=== PATIENT | male | born 1940 | race Caucasian/White ===

== ENCOUNTER 2017-01-31 15:16 | Inpatient (IN) | payer OTHER ==
[2017-01-31 16:50] LABS: BASOPHILS % (AUTO) 0.6 % (0.2-1.0); EOSINOPHILS # (AUTO) 0.5 x10^3/uL (0.0-0.2); EOSINOPHILS % (AUTO) 6.9 % (0.9-2.9); HEMATOCRIT 42.2 % (42.0-54.0); HEMOGLOBIN 14.1 g/dL (13.5-18.0); LYMPHOCYTES # (AUTO) 1.8 X10^3/uL (1.3-2.9); LYMPHOCYTES % (AUTO) 25.1 % (21.0-51.0); MEAN CORPUSCULAR HGB CONC 33.4 g/dL (33.0-35.0); MEAN CORPUSCULAR VOLUME 83.8 fL (80.0-100.0); MEAN PLATELET VOLUME 8.4 fL (7.4-11.0); MONOCYTES # (AUTO) 0.4 x10^3/uL (0.3-0.8); MONOCYTES % (AUTO) 5.4 % (0.0-13.0); NEUTROPHILS # (AUTO) 4.5 x10^3/uL (2.2-4.8); PLATELET COUNT 143 X10^3/uL (150.0-450.0); RED BLOOD COUNT 5.03 X10^6/uL (4.7-6.0); RED CELL DISTRIBUTION WIDTH 16.9 % (11.6-16.5); WHITE BLOOD COUNT 7.3 X10^3/uL (3.6-10.0)
[2017-01-31 16:58] LABS: ALANINE AMINOTRANSFERASE 27 Units/L (12-78); ALBUMIN 3.7 g/dL (3.4-5.0); ALKALINE PHOSPHATASE 110 Units/L (46-116); ASPARTATE AMINO TRANSFERASE 23 Units/L (15-37); BLOOD UREA NITROGEN 11 mg/dL (7-18); CALCIUM 8.8 mg/dL (8.5-10.1); CHLORIDE 107 mmol/L (98-107); CREATININE 1.03 mg/dL (0.70-1.30); SODIUM 141 mmol/L (136-145); TOTAL PROTEIN 7.1 g/dL (6.4-8.2); eGFR BLACK RACES > 60 (>60); eGFR NON BLACK RACES > 60 (>60)
[2017-01-31] MEDS: NS 1000 ML 1,000 ML IV SCH (17:19)
[2017-01-31 17:46] VITALS: BMI 23.1
[2017-01-31 19:02] LABS: BILIRUBIN,URINE NEGATIVE (NEGATIVE); BLOOD/HEMOGLOBIN,URINE NEGATIVE (NEGATIVE); GLUCOSE, URINE NEGATIVE (NEGATIVE); KETONES,URINE NEGATIVE (NEGATIVE); LEUKOCYTE ESTERASE ,URINE NEGATIVE (NEGATIVE); NITRITES,URINE NEGATIVE (NEGATIVE); PROTEIN,URINE NEGATIVE (NEGATIVE); UROBILINOGEN,URINE NORMAL (NORMAL)
[2017-01-31 19:13] LABS: APPEARANCE,URINE CLEAR (CLEAR); BACTERIA,URINE NEGATIVE /HPF (NEGATIVE); COLOR,URINE YELLOW (YELLOW); RBC,URINE 0-3 /HPF (NEGATIVE); SQUAMOUS EPITHELIAL CELL,UR RARE /HPF (NEGATIVE)
[2017-01-31] MEDS ORDERED: NS 100 ML IV 100 ML IV ONE (21:37)
--- NOTE | 2017-02-01 05:14 | CT ---
CT abdomen and pelvis with contrast Indication: left lower quadrant and groin pain Comparison: None Technique: CT images of the abdomen and pelvis were obtained after IV and oral contrast administratio n. Automatic exposure control was utilized. Findings: There is severe lumbar spondylosis. No acute skeletal abnormality identified. Images of the lower chest demonstrate mild cardiomegaly. The lung bases are clear. The liver, gallbladder, spleen, stomach, duodenum, and pancreas demonstrate no acute abnormality. Pos tsurgical changes about the GE junction of the stomach are noted. The adrenal glands and kidneys appe ar normal aside from a simple appearing left renal cyst. There is extensive colonic diverticulosis. T here is mild focal circumferential thickening involving a short segment of the proximal sigmoid (axia l image 68). No significant adjacent fat stranding or fluid in this region appreciated. The remainder of the lower GI tract, including the appendix, is unremarkable. Mild thickening of the urinary bladd er. The prostate and rectum are within normal limits. No free fluid or adenopathy. There are small fa t containing bilateral inguinal hernias, with mild fat stranding associated with the base of the left -sided hernia. Impression: 1. Colonic diverticulosis. There is circumferential thickening involving a short segment of the proxi mal sigmoid colon as above. Although this could be the result of peristalsis or nondistention, early/ mild diverticulitis is not excluded. Additionally, neoplasm here is also a consideration. Recommend c olonoscopy for further evaluation, if not recently or previously performed. 2. Small fat containing bilateral inguinal hernias, with mild nonspecific fat stranding at the base o f the left-sided hernia. 3. Urinary bladder thickening. Correlation for cystitis is recommended. 4. Additional findings as above. Reported By:
[2017-02-01] MEDS: NS 1000 ML 1,000 ML IV SCH ×2 (05:19→11:31)
[2017-02-01 05:57] LABS: BASOPHILS % (AUTO) 0.6 % (0.2-1.0); EOSINOPHILS # (AUTO) 0.5 x10^3/uL (0.0-0.2); EOSINOPHILS % (AUTO) 9.1 % (0.9-2.9); HEMATOCRIT 38.4 % (42.0-54.0); HEMOGLOBIN 12.8 g/dL (13.5-18.0); LYMPHOCYTES # (AUTO) 1.4 X10^3/uL (1.3-2.9); LYMPHOCYTES % (AUTO) 24.1 % (21.0-51.0); MEAN CORPUSCULAR HEMOGLOBIN 27.8 pg (27.0-34.0); MEAN CORPUSCULAR HGB CONC 33.2 g/dL (33.0-35.0); MEAN CORPUSCULAR VOLUME 83.5 fL (80.0-100.0); MEAN PLATELET VOLUME 8.4 fL (7.4-11.0); MONOCYTES # (AUTO) 0.4 x10^3/uL (0.3-0.8); MONOCYTES % (AUTO) 7.3 % (0.0-13.0); NEUTROPHILS # (AUTO) 3.5 x10^3/uL (2.2-4.8); NEUTROPHILS % (AUTO) 58.9 % (42.0-75.0); PLATELET COUNT 119 X10^3/uL (150.0-450.0); RED CELL DISTRIBUTION WIDTH 16.7 % (11.6-16.5)
[2017-02-01 05:59] LABS: ALANINE AMINOTRANSFERASE 22 Units/L (12-78); ALBUMIN 3.2 g/dL (3.4-5.0); ALKALINE PHOSPHATASE 102 Units/L (46-116); ASPARTATE AMINO TRANSFERASE 20 Units/L (15-37); BLOOD UREA NITROGEN 10 mg/dL (7-18); CALCIUM 8.1 mg/dL (8.5-10.1); CARBON DIOXIDE 28.1 mmol/L (21-32); CHLORIDE 108 mmol/L (98-107); COR CA(FOR HYPOALB) 8.7 mg/dL (8.5-10.1); SODIUM 143 mmol/L (136-145); eGFR BLACK RACES > 60 (>60); eGFR NON BLACK RACES > 60 (>60)
[2017-02-01] MEDS: CIPRO IV 400 MG PREMIX* 400 MG/200 ML IV.SOLN. IV SCH ×2 (10:27→21:00)
--- NOTE | 2017-02-01 10:40 | DR.UPDATE ---
H&P Update History and Physical Update: WAS SEEN IN THE OFFICE ON 01/31/17. A H&P WAS COMPLETED PRIOR TO ADMISSION. PATIENT HAS BEEN SEEN AND EXAMINED WITH NO CHANGES NOTED TO H&P. Changes noted: NO Yes with the following:
[2017-02-01] MEDS: FLAGYL IV PREMIX 500 MG BAG 500 MG/100 ML BAG IV SCH ×3 (11:30→21:00)
[2017-02-01] MEDS: DILANTIN CAP 100 MG EXT REL PO SCH ×2 (16:12→20:56)
[2017-02-01] MEDS: TOPROL XL PO SCH (16:12)
[2017-02-01] MEDS: KLONOPIN TAB 0.5 MG PO SCH (20:56)
[2017-02-01] MEDS: COMBIGAN EYE DROPS EACHEYE SCH (20:58)
[2017-02-01] MEDS: TRAVATAN Z EACHEYE SCH (20:58)
[2017-02-02] MEDS: NS 1000 ML 1,000 ML IV SCH ×2 (03:34→23:35)
[2017-02-02] MEDS: FLAGYL IV PREMIX 500 MG BAG 500 MG/100 ML BAG IV SCH ×4 (03:34→21:59)
[2017-02-02 06:16] LABS: BASOPHILS # (AUTO) 0.1 X10^3/uL (0.0-0.1); BASOPHILS % (AUTO) 0.7 % (0.2-1.0); EOSINOPHILS # (AUTO) 0.6 x10^3/uL (0.0-0.2); EOSINOPHILS % (AUTO) 7.6 % (0.9-2.9); HEMATOCRIT 36.4 % (42.0-54.0); HEMOGLOBIN 12.2 g/dL (13.5-18.0); LYMPHOCYTES # (AUTO) 1.6 X10^3/uL (1.3-2.9); LYMPHOCYTES % (AUTO) 20.5 % (21.0-51.0); MEAN CORPUSCULAR HGB CONC 33.5 g/dL (33.0-35.0); MEAN CORPUSCULAR VOLUME 83.6 fL (80.0-100.0); MEAN PLATELET VOLUME 9.6 fL (7.4-11.0); MONOCYTES # (AUTO) 0.6 x10^3/uL (0.3-0.8); MONOCYTES % (AUTO) 7.6 % (0.0-13.0); NEUTROPHILS # (AUTO) 5.1 x10^3/uL (2.2-4.8); NEUTROPHILS % (AUTO) 63.6 % (42.0-75.0); PLATELET COUNT 112 X10^3/uL (150.0-450.0); RED BLOOD COUNT 4.36 X10^6/uL (4.7-6.0); RED CELL DISTRIBUTION WIDTH 16.8 % (11.6-16.5)
[2017-02-02 07:01] LABS: ALANINE AMINOTRANSFERASE 21 Units/L (12-78); ALBUMIN 3.1 g/dL (3.4-5.0); ALKALINE PHOSPHATASE 95 Units/L (46-116); ASPARTATE AMINO TRANSFERASE 22 Units/L (15-37); BLOOD UREA NITROGEN 8 mg/dL (7-18); CALCIUM 8.3 mg/dL (8.5-10.1); CARBON DIOXIDE 26.4 mmol/L (21-32); CHLORIDE 110 mmol/L (98-107); CREATININE 1.11 mg/dL (0.70-1.30); SODIUM 144 mmol/L (136-145); TOTAL PROTEIN 5.8 g/dL (6.4-8.2); eGFR BLACK RACES > 60 (>60); eGFR NON BLACK RACES > 60 (>60)
[2017-02-02 07:12] LABS: PLATELET MORPHOLOGY COMMENT NORMAL (NORMAL)
[2017-02-02] MEDS: DILANTIN CAP 100 MG EXT REL PO SCH ×2 (08:50→21:55)
[2017-02-02] MEDS: CIPRO IV 400 MG PREMIX* 400 MG/200 ML IV.SOLN. IV SCH ×2 (08:50→21:59)
[2017-02-02] MEDS: TOPROL XL PO SCH (08:50)
[2017-02-02] MEDS: COMBIGAN EYE DROPS EACHEYE SCH ×2 (08:51→22:01)
--- NOTE | 2017-02-02 20:38 | PCM.PROG ---
Progress Note - Progress Note for Day of Date: 02/01/17 - Subjective Subjective: WAS ADMITTED FOR LLQ ABDOMINAL PAIN. HE IS ALERT AND ORIENTED, LYING IN BED ON MORNING ROUNDS. HE CONTINUES WITH LLQ PAIN. ON EXAMINATION, ABDOMEN IS ROUND WITH DIFFUSE TENDERNESS. BOWEL SOUNDS ARE NORMAL IN ALL QUADRANTS. LUNGS ARE CLEAR TO AUSCULTATION. VITALS THIS AM ARE 98.9-83-18 -97%-115/54. ABNORMAL LAB VALUES THIS MORNING INCLUDE RBC 4.60, HGB 12.8, HCT 38.4, CALCIUM 8.1, TOTAL PROTEIN 6.0, ALBUMIN 3.2. CT ABD/PELVIS WITH CONTRAST WAS OBTAINED AND REPORTED THE FOLLOWING: Colonic diverticulosis. There is circumferential thickening involving a short segment of the proximal sigmoid colon. Although this could be the result of peristalsis or non-distention, early/mild diverticulitis is not excluded. Additionally, neoplasm here is also a consideration. Recommend colonoscopy for further evaluation, if not recently performed. Small fat containing bilateral inguinal hernias, with mild nonspecific fat stranding at the base of the left sided hernia. Urinary bladder thickening. Correlation for cystitis is recommended. WE WILL START CIPRO 400MG IV Q12 AND FLAGYL 500MG IV Q6H FOR SUSPECTED DIVERTICULITITS. WE WILL ALSO OBTAIN ECHO AND CONSULT FOR ABDOMINAL PAIN. WE PLAN TO RECHECK AM LABS AND CONTINUE TO MONITOR PATIENT. - Past Medical Family Social History Past Med/Fam/Surg Hx: No changes since H&P Allergies: Allergies No Known Drug Allergies Allergy (Verified 01/31/17 16:22) - Review of Systems ROS: No change since H&P - Vital Signs and I&O's Vital Signs: Temperature 97.9 F Pulse Rate [Right Brachial] 62 Respiratory Rate 20 Blood Pressure [Left Arm] 179/89 Blood Pressure [Right Arm] 120/70 Blood Pressure 120/74 O2 Sat by Pulse Oximetry 98 Intake and Output: Intake & Output 01/31/17 02/01/17 02/02/17 02/03/17 11:59 11:59 11:59 11:59 Intake Total 480 2277 240 Output Total 500 2195 600 Balance -57 -353 -360 - Physical Exam Oriented: Normal Eyes: Discharge, Other (GLAUCOMA ) Ear: Normal Nose: Normal Throat: Normal Respiratory: Normal Cardiovascular: Normal : Normal Auscultation: Bowel Sounds: Normal Tenderness: Diffuse, Mild Skin: Normal Musculoskeletal: Normal Psychiatric: Normal Mood Description: Calm Affect: Normal Speech Pattern: Clear, Appropriate - Laboratory and Diagnostics Result Diagrams: 02/02/17 04:55 02/02/17 04:55 Labs: Laboratory WBC 8.0 X10^3/uL (3.6-10.0) 02/02/17 04:55 RBC 4.36 X10^6/uL (4.7-6.0) L 02/02/17 04:55 Hgb 12.2 g/dL (13.5-18.0) L 02/02/17 04:55 Hct 36.4 % (42.0-54.0) L 02/02/17 04:55 MCV 83.6 fL (80.0-100.0) 02/02/17 04:55 MCH 28.0 pg (27.0-34.0) 02/02/17 04:55 MCHC 33.5 g/dL (33.0-35.0) 02/02/17 04:55 RDW 16.8 % (11.6-16.5) H 02/02/17 04:55 Plt Count 112 X10^3/uL (150.0-450.0) L 02/02/17 04:55 Plt Count Comment Decreased (ADEQUATE) 02/02/17 04:55 MPV 9.6 fL (7.4-11.0) 02/02/17 04:55 Neut % 63.6 % (42.0-75.0) 02/02/17 04:55 Lymph % 20.5 % (21.0-51.0) L 02/02/17 04:55 [place] % 7.6 % (0.0-13.0) 02/02/17 04:55 Eos % 7.6 % (0.9-2.9) H 02/02/17 04:55 Baso % 0.7 % (0.2-1.0) 02/02/17 04:55 Neut # 5.1 x10^3/uL (2.2-4.8) H 02/02/17 04:55 Lymph # 1.6 X10^3/uL (1.3-2.9) 02/02/17 04:55 [place] # 0.6 x10^3/uL (0.3-0.8) 02/02/17 04:55 Eos # 0.6 x10^3/uL (0.0-0.2) H 02/02/17 04:55 Baso # 0.1 X10^3/uL (0.0-0.1) 02/02/17 04:55 Absolute Nucleated RBC 0.0 /100WBC 02/02/17 04:55 Plt Clumps, EDTA Rare 02/02/17 04:55 Plt Morphology Comment Normal (NORMAL) 02/02/17 04:55 RBC Morphology Normal (NORMAL) 02/02/17 04:55 Sodium 144 mmol/L (136-145) 02/02/17 04:55 Corrected Sodium TNP 02/02/17 04:55 Potassium 4.3 mmol/L (3.5-5.1) 02/02/17 04:55 Chloride 110 mmol/L (98-107) H 02/02/17 04:55 Carbon Dioxide 26.4 mmol/L (21-32) 02/02/17 04:55 BUN 8 mg/dL (7-18) 02/02/17 04:55 Creatinine 1.11 mg/dL (0.70-1.30) 02/02/17 04:55 Est GFR (MDRD) Af Amer > 60 (>60) 02/02/17 04:55 Est GFR (MDRD) Non-Af > 60 (>60) 02/02/17 04:55 Glucose 87 mg/dL (65-99) 02/02/17 04:55 Calcium 8.3 mg/dL (8.5-10.1) L 02/02/17 04:55 Corrected Calcium 9.0 mg/dL (8.5-10.1) 02/02/17 04:55 Total Bilirubin 0.30 mg/dL (0.2-1.0) 02/02/17 04:55 AST 22 Units/L (15-37) 02/02/17 04:55 ALT 21 Units/L (12-78) 02/02/17 04:55 Alkaline Phosphatase 95 Units/L (46-116) 02/02/17 04:55 Total Protein 5.8 g/dL (6.4-8.2) L 02/02/17 04:55 Albumin 3.1 g/dL (3.4-5.0) L 02/02/17 04:55 Globulin 2.7 g/dL (2.5-4.5) 02/02/17 04:55 Albumin/Globulin Ratio 1.1 Ratio (1.1-2.1) 02/02/17 04:55 Specimen Type Clean catch urine 01/31/17 18:52 Urine Color Yellow (YELLOW) 01/31/17 18:52 Urine Appearance Clear (CLEAR) 01/31/17 18:52 Urine pH 7.0 (5.0 - 8.0) 01/31/17 18:52 Ur Specific [place] 1.015 (1.000-1.030) 01/31/17 18:52 Urine Protein Negative (NEGATIVE) 01/31/17 18:52 Urine Glucose (UA) Negative (NEGATIVE) 01/31/17 18:52 Urine Ketones Negative (NEGATIVE) 01/31/17 18:52 Urine Occult Blood Negative (NEGATIVE) 01/31/17 18:52 Urine Nitrite Negative (NEGATIVE) 01/31/17 18:52 Urine Bilirubin Negative (NEGATIVE) 01/31/17 18:52 Urine Urobilinogen Normal (NORMAL) 01/31/17 18:52 Ur Leukocyte Esterase Negative (NEGATIVE) 01/31/17 18:52 Urine RBC 0-3 /HPF (NEGATIVE) 01/31/17 18:52 Urine WBC 0-3 /HPF (NEGATIVE) 01/31/17 18:52 Ur Squamous Epith Cells Rare /HPF (NEGATIVE) 01/31/17 18:52 Urine Bacteria Negative /HPF (NEGATIVE) 01/31/17 18:52 Ur Culture Indicated? No/not indicated 01/31/17 18:52 - Plan (1) Diverticulitis Status: Acute Qualifiers: Diverticulitis site: large intestine Diverticulitis bleeding: without bleeding Diverticulitis complication: unspecified complication status Qualified Code(s): K57.32 - Diverticulitis of large intestine without perforation or abscess without bleeding Plan: CIPRO 400MG IV Q12H, FLAGYL 500MG IV Q6H, GI CONSULT, CONTINUE TO MONITOR
--- NOTE | 2017-02-02 21:15 | PCM.PROG ---
Progress Note - Progress Note for Day of Date: 02/02/17 - Subjective Subjective: IS ALERT AND ORIENTED, LYING IN BED ON MORNING ROUNDS. HE CONTINUES WITH LLQ PAIN. BOWEL SOUNDS ARE NORMAL IN ALL QUADRANTS. LUNGS ARE CLEAR TO AUSCULTATION. VITALS THIS AM ARE 97.7-62-20-97%-133/73. ABNORMAL LAB VALUES THIS MORNING INCLUDE RBC 4.36, HGB 12.2, HCT 36.4, CALCIUM 8.3, TOTAL PROTEIN 5.8, ALBUMIN 3.1. PATIENT REMAINS NPO AND WE ARE AWAITING CONSULT WITH . WE WILL ALSO OBTAIN AN ECHO TODAY. WE PLAN TO RECHECK AM LABS AND CONTINUE TO MONITOR PATIENT. - Past Medical Family Social History Past Med/Fam/Surg Hx: No changes since H&P Allergies: Allergies No Known Drug Allergies Allergy (Verified 01/31/17 16:22) - Review of Systems ROS: No change since H&P - Vital Signs and I&O's Vital Signs: Temperature 97.9 F Pulse Rate [Right Brachial] 62 Respiratory Rate 20 Blood Pressure [Left Arm] 179/89 Blood Pressure [Right Arm] 120/70 Blood Pressure 120/74 O2 Sat by Pulse Oximetry 98 Intake and Output: Intake & Output 01/31/17 02/01/17 02/02/17 02/03/17 11:59 11:59 11:59 11:59 Intake Total 480 2277 240 Output Total 500 2925 600 Balance -42 -845 -404 - Physical Exam Oriented: Normal Eyes: Discharge, Other (GLAUCOMA ) Ear: Normal Nose: Normal Throat: Normal Respiratory: Normal Cardiovascular: Normal : Normal Auscultation: Bowel Sounds: Normal Tenderness: Diffuse, Mild Skin: Normal Musculoskeletal: Normal Psychiatric: Normal Mood Description: Calm Affect: Normal Speech Pattern: Clear, Appropriate - Laboratory and Diagnostics Result Diagrams: 02/02/17 04:55 02/02/17 04:55 Labs: Laboratory WBC 8.0 X10^3/uL (3.6-10.0) 02/02/17 04:55 RBC 4.36 X10^6/uL (4.7-6.0) L 02/02/17 04:55 Hgb 12.2 g/dL (13.5-18.0) L 02/02/17 04:55 Hct 36.4 % (42.0-54.0) L 02/02/17 04:55 MCV 83.6 fL (80.0-100.0) 02/02/17 04:55 MCH 28.0 pg (27.0-34.0) 02/02/17 04:55 MCHC 33.5 g/dL (33.0-35.0) 02/02/17 04:55 RDW 16.8 % (11.6-16.5) H 02/02/17 04:55 Plt Count 112 X10^3/uL (150.0-450.0) L 02/02/17 04:55 Plt Count Comment Decreased (ADEQUATE) 02/02/17 04:55 MPV 9.6 fL (7.4-11.0) 02/02/17 04:55 Neut % 63.6 % (42.0-75.0) 02/02/17 04:55 Lymph % 20.5 % (21.0-51.0) L 02/02/17 04:55 [place] % 7.6 % (0.0-13.0) 02/02/17 04:55 Eos % 7.6 % (0.9-2.9) H 02/02/17 04:55 Baso % 0.7 % (0.2-1.0) 02/02/17 04:55 Neut # 5.1 x10^3/uL (2.2-4.8) H 02/02/17 04:55 Lymph # 1.6 X10^3/uL (1.3-2.9) 02/02/17 04:55 [place] # 0.6 x10^3/uL (0.3-0.8) 02/02/17 04:55 Eos # 0.6 x10^3/uL (0.0-0.2) H 02/02/17 04:55 Baso # 0.1 X10^3/uL (0.0-0.1) 02/02/17 04:55 Absolute Nucleated RBC 0.0 /100WBC 02/02/17 04:55 Plt Clumps, EDTA Rare 02/02/17 04:55 Plt Morphology Comment Normal (NORMAL) 02/02/17 04:55 RBC Morphology Normal (NORMAL) 02/02/17 04:55 Sodium 144 mmol/L (136-145) 02/02/17 04:55 Corrected Sodium TNP 02/02/17 04:55 Potassium 4.3 mmol/L (3.5-5.1) 02/02/17 04:55 Chloride 110 mmol/L (98-107) H 02/02/17 04:55 Carbon Dioxide 26.4 mmol/L (21-32) 02/02/17 04:55 BUN 8 mg/dL (7-18) 02/02/17 04:55 Creatinine 1.11 mg/dL (0.70-1.30) 02/02/17 04:55 Est GFR (MDRD) Af Amer > 60 (>60) 02/02/17 04:55 Est GFR (MDRD) Non-Af > 60 (>60) 02/02/17 04:55 Glucose 87 mg/dL (65-99) 02/02/17 04:55 Calcium 8.3 mg/dL (8.5-10.1) L 02/02/17 04:55 Corrected Calcium 9.0 mg/dL (8.5-10.1) 02/02/17 04:55 Total Bilirubin 0.30 mg/dL (0.2-1.0) 02/02/17 04:55 AST 22 Units/L (15-37) 02/02/17 04:55 ALT 21 Units/L (12-78) 02/02/17 04:55 Alkaline Phosphatase 95 Units/L (46-116) 02/02/17 04:55 Total Protein 5.8 g/dL (6.4-8.2) L 02/02/17 04:55 Albumin 3.1 g/dL (3.4-5.0) L 02/02/17 04:55 Globulin 2.7 g/dL (2.5-4.5) 02/02/17 04:55 Albumin/Globulin Ratio 1.1 Ratio (1.1-2.1) 02/02/17 04:55 Specimen Type Clean catch urine 01/31/17 18:52 Urine Color Yellow (YELLOW) 01/31/17 18:52 Urine Appearance Clear (CLEAR) 01/31/17 18:52 Urine pH 7.0 (5.0 - 8.0) 01/31/17 18:52 Ur Specific [place] 1.015 (1.000-1.030) 01/31/17 18:52 Urine Protein Negative (NEGATIVE) 01/31/17 18:52 Urine Glucose (UA) Negative (NEGATIVE) 01/31/17 18:52 Urine Ketones Negative (NEGATIVE) 01/31/17 18:52 Urine Occult Blood Negative (NEGATIVE) 01/31/17 18:52 Urine Nitrite Negative (NEGATIVE) 01/31/17 18:52 Urine Bilirubin Negative (NEGATIVE) 01/31/17 18:52 Urine Urobilinogen Normal (NORMAL) 01/31/17 18:52 Ur Leukocyte Esterase Negative (NEGATIVE) 01/31/17 18:52 Urine RBC 0-3 /HPF (NEGATIVE) 01/31/17 18:52 Urine WBC 0-3 /HPF (NEGATIVE) 01/31/17 18:52 Ur Squamous Epith Cells Rare /HPF (NEGATIVE) 01/31/17 18:52 Urine Bacteria Negative /HPF (NEGATIVE) 01/31/17 18:52 Ur Culture Indicated? No/not indicated 01/31/17 18:52 - Plan (1) Diverticulitis Status: Acute Qualifiers: Diverticulitis site: large intestine Diverticulitis bleeding: without bleeding Diverticulitis complication: unspecified complication status Qualified Code(s): K57.32 - Diverticulitis of large intestine without perforation or abscess without bleeding Plan: CIPRO 400MG IV Q12H, FLAGYL 500MG IV Q6H, GI CONSULT, CONTINUE TO MONITOR
[2017-02-02] MEDS: KLONOPIN TAB 0.5 MG PO SCH (21:55)
[2017-02-02] MEDS: TRAVATAN Z EACHEYE SCH (22:01)
[2017-02-03] MEDS: FLAGYL IV PREMIX 500 MG BAG 500 MG/100 ML BAG IV SCH ×4 (05:00→21:16)
[2017-02-03 05:23] LABS: BASOPHILS % (AUTO) 0.5 % (0.2-1.0); EOSINOPHILS # (AUTO) 0.5 x10^3/uL (0.0-0.2); EOSINOPHILS % (AUTO) 8.7 % (0.9-2.9); HEMATOCRIT 35.5 % (42.0-54.0); HEMOGLOBIN 11.8 g/dL (13.5-18.0); LYMPHOCYTES # (AUTO) 1.6 X10^3/uL (1.3-2.9); LYMPHOCYTES % (AUTO) 26.4 % (21.0-51.0); MEAN CORPUSCULAR HGB CONC 33.3 g/dL (33.0-35.0); MEAN PLATELET VOLUME 8.7 fL (7.4-11.0); MONOCYTES # (AUTO) 0.5 x10^3/uL (0.3-0.8); MONOCYTES % (AUTO) 9.2 % (0.0-13.0); NEUTROPHILS # (AUTO) 3.3 x10^3/uL (2.2-4.8); NEUTROPHILS % (AUTO) 55.2 % (42.0-75.0); PLATELET COUNT 113 X10^3/uL (150.0-450.0); RED BLOOD COUNT 4.22 X10^6/uL (4.7-6.0); RED CELL DISTRIBUTION WIDTH 16.4 % (11.6-16.5); WHITE BLOOD COUNT 5.9 X10^3/uL (3.6-10.0)
[2017-02-03 05:31] LABS: ALANINE AMINOTRANSFERASE 17 Units/L (12-78); ALKALINE PHOSPHATASE 95 Units/L (46-116); ASPARTATE AMINO TRANSFERASE 15 Units/L (15-37); BLOOD UREA NITROGEN 9 mg/dL (7-18); CARBON DIOXIDE 24.3 mmol/L (21-32); CHLORIDE 110 mmol/L (98-107); COR CA(FOR HYPOALB) 8.8 mg/dL (8.5-10.1); COR NA(FOR HYPERGLY) 142 mmol/L (136-145); CREATININE 1.09 mg/dL (0.70-1.30); SODIUM 142 mmol/L (136-145); TOTAL PROTEIN 5.6 g/dL (6.4-8.2); eGFR BLACK RACES > 60 (>60); eGFR NON BLACK RACES > 60 (>60)
[2017-02-03] MEDS: TOPROL XL PO SCH (10:20)
[2017-02-03] MEDS: COMBIGAN EYE DROPS EACHEYE SCH ×2 (10:20→21:17)
[2017-02-03] MEDS: CIPRO IV 400 MG PREMIX* 400 MG/200 ML IV.SOLN. IV SCH ×2 (10:20→21:16)
[2017-02-03] MEDS: DILANTIN CAP 100 MG EXT REL PO SCH ×2 (10:21→21:16)
[2017-02-03] MEDS: NS 1000 ML 1,000 ML IV SCH (21:10)
[2017-02-03] MEDS: KLONOPIN TAB 0.5 MG PO SCH (21:16)
[2017-02-03] MEDS: TRAVATAN Z EACHEYE SCH (21:17)
--- NOTE | 2017-02-03 22:48 | PCM.PROG ---
Progress Note - Progress Note for Day of Date: 02/03/17 - Subjective Subjective: WAS ADMITTED FOR LLQ PAIN. ABD/PELVIS CT SUGGEST DIVERTICULITITS. HE IS ALERT AND ORIENTED, SITTING UP IN BED ON MORNING ROUNDS. HE CONTINUES WITH LLQ, HOWEVER, REPORTS THAT PAIN HAS GREATLY DECREASED SINCE ADMISSION. ON EXAMINATION, ABDOMEN IS SOFT, ROUND, AND TENDER. BOWEL SOUNDS ARE NORMAL IN ALL QUADRANTS. LUNGS ARE CLEAR TO AUSCULTATION. VITALS THIS AM ARE 98.5-57-18-96%-109/64. ABNORMAL LAB VALUES THIS MORNING INCLUDE RBC 4.22, HGB 11.8, HCT 35.5, GLUCOSE 114, CALCIUM 8.0, TOTAL PROTEIN 5.6, ALBUMIN 3.0, CHLORIDE 110. CONSULTED WITH PATIENT YESTERDAY. HE RECOMMENDS TO CONTINUE TO TREAT WITH ANTIBIOTICS. HE ALSO RECOMMENDS A COLONOSCOPY AFTER PATIENT IS DISCHARGED. PATIENT IS TO FOLLOW UP IN HIS OFFICE WHERE THEY WILL DISCUSS COLONOSCOPY. WE WILL RECHECK ABD/PELVIS CT WITH CONTRAST IN AM. PATIENT WILL BE NPO AFTER MIDNIGHT FOR SCAN. WE PLAN TO RECHECK AM LABS AND CONTINUE TO MONITOR PATIENT. - Past Medical Family Social History Past Med/Fam/Surg Hx: No changes since H&P Allergies: Allergies No Known Drug Allergies Allergy (Verified 01/31/17 16:22) - Review of Systems ROS: No change since H&P - Vital Signs and I&O's Vital Signs: Temperature 97.4 F Pulse Rate [Right Brachial] 56 Respiratory Rate 20 Blood Pressure [Left Arm] 134/76 Blood Pressure [Right Arm] 112/58 Blood Pressure 120/74 O2 Sat by Pulse Oximetry 99 Intake and Output: Intake & Output 02/01/17 02/02/17 02/03/17 02/04/17 11:59 11:59 11:59 11:59 Intake Total 480 8517 2159 1510 Output Total 500 1645 1250 1400 Balance -20 647 909 110 - Physical Exam Oriented: Normal Eyes: Discharge, Other (GLAUCOMA ) Ear: Normal Nose: Normal Throat: Normal Respiratory: Normal Cardiovascular: Normal : Normal Auscultation: Bowel Sounds: Normal Palpation: Normal Tenderness: Diffuse, Mild Skin: Normal Musculoskeletal: Normal Psychiatric: Normal Mood Description: Calm Affect: Normal Speech Pattern: Clear, Appropriate - Laboratory and Diagnostics Result Diagrams: 02/03/17 04:25 02/03/17 04:25 Labs: Laboratory WBC 5.9 X10^3/uL (3.6-10.0) 02/03/17 04:25 RBC 4.22 X10^6/uL (4.7-6.0) L 02/03/17 04:25 Hgb 11.8 g/dL (13.5-18.0) L 02/03/17 04:25 Hct 35.5 % (42.0-54.0) L 02/03/17 04:25 MCV 84.0 fL (80.0-100.0) 02/03/17 04:25 MCH 28.0 pg (27.0-34.0) 02/03/17 04:25 MCHC 33.3 g/dL (33.0-35.0) 02/03/17 04:25 RDW 16.4 % (11.6-16.5) 02/03/17 04:25 Plt Count 113 X10^3/uL (150.0-450.0) L 02/03/17 04:25 Plt Count Comment Decreased (ADEQUATE) 02/02/17 04:55 MPV 8.7 fL (7.4-11.0) 02/03/17 04:25 Neut % 55.2 % (42.0-75.0) 02/03/17 04:25 Lymph % 26.4 % (21.0-51.0) 02/03/17 04:25 [place] % 9.2 % (0.0-13.0) 02/03/17 04:25 Eos % 8.7 % (0.9-2.9) H 02/03/17 04:25 Baso % 0.5 % (0.2-1.0) 02/03/17 04:25 Neut # 3.3 x10^3/uL (2.2-4.8) 02/03/17 04:25 Lymph # 1.6 X10^3/uL (1.3-2.9) 02/03/17 04:25 [place] # 0.5 x10^3/uL (0.3-0.8) 02/03/17 04:25 Eos # 0.5 x10^3/uL (0.0-0.2) H 02/03/17 04:25 Baso # 0.0 X10^3/uL (0.0-0.1) 02/03/17 04:25 Absolute Nucleated RBC 0.0 /100WBC 02/03/17 04:25 Plt Clumps, EDTA Rare 02/02/17 04:55 Plt Morphology Comment Normal (NORMAL) 02/02/17 04:55 RBC Morphology Normal (NORMAL) 02/02/17 04:55 Sodium 142 mmol/L (136-145) 02/03/17 04:25 Corrected Sodium 142 mmol/L (136-145) 02/03/17 04:25 Potassium 4.1 mmol/L (3.5-5.1) 02/03/17 04:25 Chloride 110 mmol/L (98-107) H 02/03/17 04:25 Carbon Dioxide 24.3 mmol/L (21-32) 02/03/17 04:25 BUN 9 mg/dL (7-18) 02/03/17 04:25 Creatinine 1.09 mg/dL (0.70-1.30) 02/03/17 04:25 Est GFR (MDRD) Af Amer > 60 (>60) 02/03/17 04:25 Est GFR (MDRD) Non-Af > 60 (>60) 02/03/17 04:25 Glucose 114 mg/dL (65-99) H 02/03/17 04:25 Calcium 8.0 mg/dL (8.5-10.1) L 02/03/17 04:25 Corrected Calcium 8.8 mg/dL (8.5-10.1) 02/03/17 04:25 Total Bilirubin 0.30 mg/dL (0.2-1.0) 02/03/17 04:25 AST 15 Units/L (15-37) 02/03/17 04:25 ALT 17 Units/L (12-78) 02/03/17 04:25 Alkaline Phosphatase 95 Units/L (46-116) 02/03/17 04:25 Total Protein 5.6 g/dL (6.4-8.2) L 02/03/17 04:25 Albumin 3.0 g/dL (3.4-5.0) L 02/03/17 04:25 Globulin 2.6 g/dL (2.5-4.5) 02/03/17 04:25 Albumin/Globulin Ratio 1.2 Ratio (1.1-2.1) 02/03/17 04:25 Specimen Type Clean catch urine 01/31/17 18:52 Urine Color Yellow (YELLOW) 01/31/17 18:52 Urine Appearance Clear (CLEAR) 01/31/17 18:52 Urine pH 7.0 (5.0 - 8.0) 01/31/17 18:52 Ur Specific [place] 1.015 (1.000-1.030) 01/31/17 18:52 Urine Protein Negative (NEGATIVE) 01/31/17 18:52 Urine Glucose (UA) Negative (NEGATIVE) 01/31/17 18:52 Urine Ketones Negative (NEGATIVE) 01/31/17 18:52 Urine Occult Blood Negative (NEGATIVE) 01/31/17 18:52 Urine Nitrite Negative (NEGATIVE) 01/31/17 18:52 Urine Bilirubin Negative (NEGATIVE) 01/31/17 18:52 Urine Urobilinogen Normal (NORMAL) 01/31/17 18:52 Ur Leukocyte Esterase Negative (NEGATIVE) 01/31/17 18:52 Urine RBC 0-3 /HPF (NEGATIVE) 01/31/17 18:52 Urine WBC 0-3 /HPF (NEGATIVE) 01/31/17 18:52 Ur Squamous Epith Cells Rare /HPF (NEGATIVE) 01/31/17 18:52 Urine Bacteria Negative /HPF (NEGATIVE) 01/31/17 18:52 Ur Culture Indicated? No/not indicated 01/31/17 18:52 - Plan (1) Diverticulitis Status: Acute Qualifiers: Diverticulitis site: large intestine Diverticulitis bleeding: without bleeding Diverticulitis complication: unspecified complication status Qualified Code(s): K57.32 - Diverticulitis of large intestine without perforation or abscess without bleeding Plan: CIPRO 400MG IV Q12H, FLAGYL 500MG IV Q6H, CT ABD/PELVIS WITH CONTRAST IN AM, CONTINUE TO MONITOR
[2017-02-04] MEDS ORDERED: NS 100 ML IV 100 ML IV ONE (01:55)
[2017-02-04] MEDS: FLAGYL IV PREMIX 500 MG BAG 500 MG/100 ML BAG IV SCH ×2 (03:05→09:18)
[2017-02-04 05:37] LABS: ALANINE AMINOTRANSFERASE 20 Units/L (12-78); ALBUMIN 3.2 g/dL (3.4-5.0); ALKALINE PHOSPHATASE 99 Units/L (46-116); ASPARTATE AMINO TRANSFERASE 18 Units/L (15-37); BLOOD UREA NITROGEN 10 mg/dL (7-18); CALCIUM 8.3 mg/dL (8.5-10.1); CARBON DIOXIDE 25.8 mmol/L (21-32); CHLORIDE 108 mmol/L (98-107); COR CA(FOR HYPOALB) 8.9 mg/dL (8.5-10.1); CREATININE 1.13 mg/dL (0.70-1.30); SODIUM 141 mmol/L (136-145); eGFR BLACK RACES > 60 (>60); eGFR NON BLACK RACES > 60 (>60)
[2017-02-04 05:52] LABS: BASOPHILS % (AUTO) 0.7 % (0.2-1.0); EOSINOPHILS # (AUTO) 0.5 x10^3/uL (0.0-0.2); EOSINOPHILS % (AUTO) 8.4 % (0.9-2.9); HEMATOCRIT 35.8 % (42.0-54.0); LYMPHOCYTES # (AUTO) 1.2 X10^3/uL (1.3-2.9); LYMPHOCYTES % (AUTO) 20.4 % (21.0-51.0); MEAN CORPUSCULAR HGB CONC 33.4 g/dL (33.0-35.0); MEAN PLATELET VOLUME 8.8 fL (7.4-11.0); MONOCYTES # (AUTO) 0.5 x10^3/uL (0.3-0.8); MONOCYTES % (AUTO) 8.4 % (0.0-13.0); NEUTROPHILS # (AUTO) 3.7 x10^3/uL (2.2-4.8); NEUTROPHILS % (AUTO) 62.1 % (42.0-75.0); PLATELET COUNT 118 X10^3/uL (150.0-450.0); RED BLOOD COUNT 4.26 X10^6/uL (4.7-6.0); RED CELL DISTRIBUTION WIDTH 17.2 % (11.6-16.5)
[2017-02-04] MEDS: DILANTIN CAP 100 MG EXT REL PO SCH (09:18)
[2017-02-04] MEDS: TOPROL XL PO SCH (09:18)
[2017-02-04] MEDS: CIPRO IV 400 MG PREMIX* 400 MG/200 ML IV.SOLN. IV SCH (09:18)
[2017-02-04] MEDS: COMBIGAN EYE DROPS EACHEYE SCH (09:18)
[2017-02-04 12:31] VITALS: BP 165/81
--- NOTE | 2017-02-04 12:42 | CT ---
HISTORY: Left lower quadrant abdominal pain Study: CT abdomen and pelvis with contrast Comparison: January 31, 2017 Technique: Multiple axial images of the abdomen and pelvis were obtained from the lung bases to the pubic symphy sis after the administration of IV contrast. Findings: The visualized portions of the lung bases are unremarkable. The liver, spleen, pancreas, kidneys, an d adrenal glands are stable in their CT appearance. The gallbladder is unremarkable in its CT appeara nce. No significant mesenteric lymphadenopathy or stranding can be observed. No free fluid or free air is seen within the abdomen. No bowel wall thickening or bowel dilatation is present. The colon demonstrates persistent diverticulosis involving the descending and sigmoid colons with a persistent focal area of narrowing in the proximal sigmoid colon. There is no pericolonic stranding to suggest d iverticulitis. Again colonoscopy would be of benefit to exclude underlying neoplasm.. Urinary bladder demonstrates stable thickening and there are persistent small bilateral fat containing inguinal garima ias. The bony structures are grossly intact. IMPRESSION: 1. Essentially stable exam with a stable focal area of thickening involving the proximal sigmoid col on as above. Reported By:
== END 2017-02-04 13:27 | disposition home or self-care (01) | DRG 392 ==
LOC: MED/SURG 15:16 → OBSVTOIN 02-02 09:00
PROVIDERS: ADMIT Internal Medicine; ATTEND Internal Medicine
DX: K57.32 Diverticulitis of large intestine without perforation or abscess without bleeding (principal); R10.32 Left lower quadrant pain; Z95.5 Presence of coronary angioplasty implant and graft; R56.9 Unspecified convulsions; I10 Essential (primary) hypertension; I25.10 Atherosclerotic heart disease of native coronary artery without angina pectoris; R06.02 Shortness of breath
CPT/HCPCS: 36415; 74177; 80053; 81001; 85025; 93306; A4222; S0030; G0378; J0744

== ENCOUNTER 2017-05-05 05:34 | Emergency (ER) | payer OTHER ==
[2017-05-05 05:44] VITALS: BMI 27.4
--- NOTE | 2017-05-05 06:00 | DR.GENAD ---
HPI - PCP Primary Care Physician: ZEINA - Complaint/Symptoms Chief Complaint:: COUGHT, SOB - Source History Provided: Patient - Mode of Arrival Mode of Arrival: Ambulatory - Timing Onset of Chief Complaint: 05/04/17 PMH - PMH Past Medical History: Yes Past Medical History: Dyslipidemia, Seizures Past Surgical History: Yes Surgical History: TURP, Other - Family History History of Family Medical Conditions: No - Social History Does patient currently use any type of tobacco product: Yes Have you used tobacco products in the last 12 months: Yes Type of Tobacco Use: Smokeless Does any household member use tobacco: No Do you use any recreational Drugs:: No Lives With: Family Lives Where: Home - infectious screening In the last 2 months have you had wt loss of >10#?: NO Have you had fever, night sweats or hemotysis?: No Have you traveled outside the country in the last 6 months?: No Isolation: Standard PE - Vital Signs Vitals: Temperature 98.5 F Pulse Rate [Right] 81 Pulse Rate 81 Respiratory Rate 18 Blood Pressure [Left Arm] 125/57 Blood Pressure [Right Arm] 112/58 Blood Pressure 125/57 O2 Sat by Pulse Oximetry 98 ROR - Labs Reviewed Result Diagrams: 05/05/17 06:13 05/05/17 06:13 Laboratory: WBC 8.7 X10^3/uL (3.6-10.0) 05/05/17 06:13 RBC 4.51 X10^6/uL (4.7-6.0) L 05/05/17 06:13 Hgb 12.6 g/dL (13.5-18.0) L 05/05/17 06:13 Hct 38.0 % (42.0-54.0) L 05/05/17 06:13 MCV 84.3 fL (80.0-100.0) 05/05/17 06:13 MCH 27.9 pg (27.0-34.0) 05/05/17 06:13 MCHC 33.0 g/dL (33.0-35.0) 05/05/17 06:13 RDW 17.7 % (11.6-16.5) H 05/05/17 06:13 Plt Count 121 X10^3/uL (150.0-450.0) L 05/05/17 06:13 MPV 7.6 fL (7.4-11.0) 05/05/17 06:13 Neut % 81.1 % (42.0-75.0) H 05/05/17 06:13 Lymph % 9.3 % (21.0-51.0) L 05/05/17 06:13 [place] % 6.4 % (0.0-13.0) 05/05/17 06:13 Eos % 2.7 % (0.9-2.9) 05/05/17 06:13 Baso % 0.5 % (0.2-1.0) 05/05/17 06:13 Neut # 7.0 x10^3/uL (2.2-4.8) H 05/05/17 06:13 Lymph # 0.8 X10^3/uL (1.3-2.9) L 05/05/17 06:13 [place] # 0.6 x10^3/uL (0.3-0.8) 05/05/17 06:13 Eos # 0.2 x10^3/uL (0.0-0.2) 05/05/17 06:13 Baso # 0.0 X10^3/uL (0.0-0.1) 05/05/17 06:13 Absolute Nucleated RBC 0.0 /100WBC 05/05/17 06:13 D-Dimer 323 ng/mL (0-400) 05/05/17 06:13 Sodium 139 mmol/L (136-145) 05/05/17 06:13 Corrected Sodium TNP 05/05/17 06:13 Potassium 4.2 mmol/L (3.5-5.1) 05/05/17 06:13 Chloride 105 mmol/L (98-107) 05/05/17 06:13 Carbon Dioxide 25.8 mmol/L (21-32) 05/05/17 06:13 BUN 12 mg/dL (7-18) 05/05/17 06:13 Creatinine 0.98 mg/dL (0.70-1.30) 05/05/17 06:13 Est GFR (MDRD) Af Amer > 60 (>60) 05/05/17 06:13 Est GFR (MDRD) Non-Af > 60 (>60) 05/05/17 06:13 Glucose 110 mg/dL (65-99) H 05/05/17 06:13 Calcium 8.0 mg/dL (8.5-10.1) L 05/05/17 06:13 Corrected Calcium TNP 05/05/17 06:13 Total Bilirubin 0.50 mg/dL (0.2-1.0) 05/05/17 06:13 AST 17 Units/L (15-37) 05/05/17 06:13 ALT 22 Units/L (12-78) 05/05/17 06:13 Alkaline Phosphatase 134 Units/L (46-116) H 05/05/17 06:13 Creatine Kinase 60 Units/L (39-308) 05/05/17 06:13 CK-MB (CK-2) 1.3 ng/mL (0-4.0) 05/05/17 06:13 CK/CKMB % Calc 2.2 % (<4) 05/05/17 06:13 Troponin I 0.05 ng/mL (0-1.5) 05/05/17 06:13 Total Protein 6.7 g/dL (6.4-8.2) 05/05/17 06:13 Albumin 3.6 g/dL (3.4-5.0) 05/05/17 06:13 Globulin 3.1 g/dL (2.5-4.5) 05/05/17 06:13 Albumin/Globulin Ratio 1.2 Ratio (1.1-2.1) 05/05/17 06:13 - XRAY XRAY Interpreted by: Radiologist (Chest: No acute cardiopulmonary disease) - Diagnosis Discharge Problem: Cough - Discharge Plan Condition: Stable - Follow ups/Referrals Follow ups/Referrals: Calin Armenta [Primary Care Provider] - 3 days - Instructions
[2017-05-05 06:21] LABS: BASOPHILS % (AUTO) 0.5 % (0.2-1.0); EOSINOPHILS # (AUTO) 0.2 x10^3/uL (0.0-0.2); EOSINOPHILS % (AUTO) 2.7 % (0.9-2.9); HEMOGLOBIN 12.6 g/dL (13.5-18.0); LYMPHOCYTES # (AUTO) 0.8 X10^3/uL (1.3-2.9); LYMPHOCYTES % (AUTO) 9.3 % (21.0-51.0); MEAN CORPUSCULAR HEMOGLOBIN 27.9 pg (27.0-34.0); MEAN CORPUSCULAR VOLUME 84.3 fL (80.0-100.0); MEAN PLATELET VOLUME 7.6 fL (7.4-11.0); MONOCYTES # (AUTO) 0.6 x10^3/uL (0.3-0.8); MONOCYTES % (AUTO) 6.4 % (0.0-13.0); NEUTROPHILS % (AUTO) 81.1 % (42.0-75.0); PLATELET COUNT 121 X10^3/uL (150.0-450.0); RED BLOOD COUNT 4.51 X10^6/uL (4.7-6.0); RED CELL DISTRIBUTION WIDTH 17.7 % (11.6-16.5); WHITE BLOOD COUNT 8.7 X10^3/uL (3.6-10.0)
[2017-05-05 06:44] LABS: BLOOD UREA NITROGEN 12 mg/dL (7-18); CARBON DIOXIDE 25.8 mmol/L (21-32); CHLORIDE 105 mmol/L (98-107); CREATININE 0.98 mg/dL (0.70-1.30); SODIUM 139 mmol/L (136-145); TROPONIN I 0.05 ng/mL (0-1.5); eGFR BLACK RACES > 60 (>60); eGFR NON BLACK RACES > 60 (>60)
[2017-05-05 06:48] LABS: ALANINE AMINOTRANSFERASE 22 Units/L (12-78); ALBUMIN 3.6 g/dL (3.4-5.0); ALKALINE PHOSPHATASE 134 Units/L (46-116); ASPARTATE AMINO TRANSFERASE 17 Units/L (15-37); CKMB % 2.2 % (<4); CREATINE KINASE 60 Units/L (39-308); CREATINE KINASE MB 1.3 ng/mL (0-4.0); TOTAL PROTEIN 6.7 g/dL (6.4-8.2)
--- NOTE | 2017-05-05 07:10 | RAD ---
History: Shortness of breath and cough Study: Portable AP chest Comparison: August 02, 2015 Reported By:
[2017-05-05 07:50] VITALS: BP 104/55
== END 2017-05-05 08:30 | disposition home or self-care (01) ==
LOC: ER 05:41
DX: R05 Cough (principal)
CPT/HCPCS: 36415; 71010; 80053; 82550; 82553; 84484; 85025; 85378; 93005; 93010; 96365; 99283; A4222

== ENCOUNTER 2017-05-16 09:37 | Emergency (ER) | payer OTHER ==
[2017-05-16 09:44] VITALS: BP 179/86; BMI 25.8
--- NOTE | 2017-05-16 09:57 | DR.GENAD ---
HPI - PCP Primary Care Physician: ZEINA - HPI Comment HPI Comment: PATIENT DENIES FEVER. CHEST PAIN FROM COUGHING. - Complaint/Symptoms Chief Complaint Doctors Comments: COUGH, CONGESTION WORSE AT NIGHT TIMES ONE WEEK. Chief Complaint:: PRODUCTIVE COUGH AT NIGHT X 1 WEEK. PT. HAS TRIED OTC MEDICATIONS WITH NO RELIEF. PT. DENIES PAIN OR ANY OTHER SYMPTOMS. - Nurses notes reviewed Nurses Notes Review: Yes - Source History Provided: Patient - Mode of Arrival Mode of Arrival: Ambulatory - Timing Onset of Chief Complaint: 05/09/17 Came on: Gradually - Duration Duration: Constant Duration: Days - Severity Severity: Moderate PMH - PMH Past Medical History: Yes Past Medical History: Dyslipidemia, Seizures Past Surgical History: Yes Surgical History: TURP, Other - Family History History of Family Medical Conditions: No - Social History Does patient currently use any type of tobacco product: Yes Have you used tobacco products in the last 12 months: Yes Type of Tobacco Use: DIP Does any household member use tobacco: No Alcohol Use: None Do you use any recreational Drugs:: No Lives With: Alone Lives Where: Home - infectious screening In the last 2 months have you had wt loss of >10#?: NO Have you had fever, night sweats or hemotysis?: No Have you traveled outside the country in the last 6 months?: No Isolation: Standard ROS - Review of Systems Constitutional: Weakness, Fatigue. negative: Chills, Fever Eyes: negative: Eye Pain, Discharge ENTM: Nose Discharge, Nose Congestion. negative: Ear Pain, Throat Pain Respiratoy: Productive Cough, Short of Breath, Wheezing. negative: Hemoptysis Cardiovascular: Chest Pain. negative: Edema Gastrointestinal/Abdominal: No Symptoms Reported. negative: Abdominal Pain, Diarrhea, Nausea, Vomiting Genitourinary: negative: Dysuria, Hematuria Neurological: Headache, Weakness, Dizziness Musculoskeletal: Muscle Pain Integumentary: Dryness Hematologic/Lymphatic: Easy Bruising Endocrine: No Symptoms Reported All Other Systems: Reviewed and Negative PE - Vital Signs Vitals: Temperature 97.7 F Pulse Rate 73 Respiratory Rate 18 Blood Pressure [Left Arm] 104/55 Blood Pressure [Right Arm] 112/58 Blood Pressure 179/86 O2 Sat by Pulse Oximetry 96 - General Limitations: No Limitations General Appearance: Alert - Head Head Exam: Normal Inspection - Eyes Eye exam: Normal Appearance - ENT ENT Exam: Normal External Ear Exam External Ear Exam: Normal External Inspection TM/Canal Exam: Bilateral Normal Nose Exam: Normal Nose Exam Mouth Exam: Normal Inspection Throat Exam: negative: Tonsillar Erythema, Tonsillomegaly, Tonsillar Exudate - Neck Neck Exam: Trachea Midline. negative: Tenderness, Meningismus, Lymphadenopathy - Chest Chest Inspection: Symmetric Chest Wall Rise - Respiratory Respiratory Exam: Respiratory Distress Respiratory Exam: Bilateral Wheezing, Bilateral Rhonchi, Lower Wheezing, Lower Rhonchi - Cardiovascular Cardiovascular Exam: Regular Rate, Normal Rhythm, Normal Heart Sounds - Abdominal Exam Abdominal Exam: Normal Bowel Sounds, Soft. negative: Tenderness - Extremities Extremities Exam: Normal Inspection - Back Back Exam: Paraspinal Tenderness - Neurologic Neurological Exam: Alert, Oriented X3 - Psychiatric Psychiatric Exam: Normal Affect, Normal Mood - Skin Skin Exam: Normal Color MDM - Differential Diagnosis Differential Diagnosis: BRONCHITIS, PNEUMONIA, SINUSITIS Course - Treatment Treatment: SEE ORDERS. - Education/Counseling Education/Counseling: Patient, Education Educated On: Treatment, Diagnosis, Needs for Follow Up ROR - Labs Reviewed Laboratory Results Reviewed?: Yes Result Diagrams: 05/16/17 10:05 05/16/17 10:05 Laboratory: WBC 6.7 X10^3/uL (3.6-10.0) 05/16/17 10:05 RBC 4.78 X10^6/uL (4.7-6.0) 05/16/17 10:05 Hgb 13.3 g/dL (13.5-18.0) L 05/16/17 10:05 Hct 40.2 % (42.0-54.0) L 05/16/17 10:05 MCV 84.1 fL (80.0-100.0) 05/16/17 10:05 MCH 27.8 pg (27.0-34.0) 05/16/17 10:05 MCHC 33.1 g/dL (33.0-35.0) 05/16/17 10:05 RDW 17.0 % (11.6-16.5) H 05/16/17 10:05 Plt Count 201 X10^3/uL (150.0-450.0) 05/16/17 10:05 MPV 7.6 fL (7.4-11.0) 05/16/17 10:05 Neut % 66.5 % (42.0-75.0) 05/16/17 10:05 Lymph % 22.6 % (21.0-51.0) 05/16/17 10:05 [place] % 7.4 % (0.0-13.0) 05/16/17 10:05 Eos % 3.0 % (0.9-2.9) H 05/16/17 10:05 Baso % 0.5 % (0.2-1.0) 05/16/17 10:05 Neut # 4.5 x10^3/uL (2.2-4.8) 05/16/17 10:05 Lymph # 1.5 X10^3/uL (1.3-2.9) 05/16/17 10:05 [place] # 0.5 x10^3/uL (0.3-0.8) 05/16/17 10:05 Eos # 0.2 x10^3/uL (0.0-0.2) 05/16/17 10:05 Baso # 0.0 X10^3/uL (0.0-0.1) 05/16/17 10:05 Absolute Nucleated RBC 0.1 /100WBC 05/16/17 10:05 - XRAY XRAY Interpreted by: Radiologist XRAY Findings: REPORT DISCUSS WITH PATIENT. - Diagnosis Discharge Problem: Acute bronchitis Qualifiers: Bronchitis organism: other organism Qualified Code(s): J20.8 - Acute bronchitis due to other specified organisms - Discharge Plan Condition: Stable Prescriptions: Benzonatate [TESSALON PERLES *] 100 mg PO TID PRN #21 cap PRN Reason: Cough Cefdinir [Omnicef Cap 300 mg] 300 mg PO BID #20 cap - Follow ups/Referrals Follow ups/Referrals: Calin Armenta [Primary Care Provider] - 3 days - Instructions Instructions: Acute Bronchitis, [id number] Additional Instructions: RETURN TO ED IF WORSE.
[2017-05-16 10:23] LABS: BASOPHILS % (AUTO) 0.5 % (0.2-1.0); EOSINOPHILS # (AUTO) 0.2 x10^3/uL (0.0-0.2); HEMATOCRIT 40.2 % (42.0-54.0); HEMOGLOBIN 13.3 g/dL (13.5-18.0); LYMPHOCYTES # (AUTO) 1.5 X10^3/uL (1.3-2.9); LYMPHOCYTES % (AUTO) 22.6 % (21.0-51.0); MEAN CORPUSCULAR HEMOGLOBIN 27.8 pg (27.0-34.0); MEAN CORPUSCULAR HGB CONC 33.1 g/dL (33.0-35.0); MEAN CORPUSCULAR VOLUME 84.1 fL (80.0-100.0); MEAN PLATELET VOLUME 7.6 fL (7.4-11.0); MONOCYTES # (AUTO) 0.5 x10^3/uL (0.3-0.8); MONOCYTES % (AUTO) 7.4 % (0.0-13.0); NEUTROPHILS # (AUTO) 4.5 x10^3/uL (2.2-4.8); NEUTROPHILS % (AUTO) 66.5 % (42.0-75.0); PLATELET COUNT 201 X10^3/uL (150.0-450.0); RED BLOOD COUNT 4.78 X10^6/uL (4.7-6.0); WHITE BLOOD COUNT 6.7 X10^3/uL (3.6-10.0)
--- NOTE | 2017-05-16 10:23 | RAD ---
Examination: Chest, PA and lateral views History: Productive cough Comparison reference 05/05/2017 Findings: Continued normal heart size, tortuous aorta, lungs and pleural spaces clear of active disea se. Healed left rib fracture deformities. Impression: No significant change; no acute disease. Reported By:
[2017-05-16 10:27] LABS: ALANINE AMINOTRANSFERASE 21 Units/L (12-78); ALBUMIN 3.1 g/dL (3.4-5.0); ALKALINE PHOSPHATASE 132 Units/L (46-116); ASPARTATE AMINO TRANSFERASE 17 Units/L (15-37); BLOOD UREA NITROGEN 10 mg/dL (7-18); CALCIUM 8.2 mg/dL (8.5-10.1); CARBON DIOXIDE 28.1 mmol/L (21-32); CHLORIDE 104 mmol/L (98-107); COR CA(FOR HYPOALB) 8.9 mg/dL (8.5-10.1); COR NA(FOR HYPERGLY) 139 mmol/L (136-145); CREATININE 0.94 mg/dL (0.70-1.30); SODIUM 139 mmol/L (136-145); TOTAL PROTEIN 6.8 g/dL (6.4-8.2); eGFR BLACK RACES > 60 (>60); eGFR NON BLACK RACES > 60 (>60)
[2017-05-16] MEDS ORDERED: ROCEPHIN VIAL 1 GM IM ONE (10:27)
[2017-05-16] MEDS ORDERED: TESSALON PERLES PO ONE (10:28)
[2017-05-16] MEDS ORDERED: ROCEPHIN VIAL 1 GM ONE (10:30)
== END 2017-05-16 10:47 | disposition home or self-care (01) ==
LOC: ER 09:41
DX: J20.8 Acute bronchitis due to other specified organisms (principal)
CPT/HCPCS: 36415; 71020; 80053; 85025; 96372; 99282; 99283; J0696

== ENCOUNTER 2017-07-09 08:50 | Emergency (ER) | payer OTHER ==
[2017-07-09 08:54] VITALS: BP 196/93; BMI 25.8
[2017-07-09] MEDS ORDERED: DECADRON INJ IM ONE (09:15)
--- NOTE | 2017-07-09 09:15 | DR.GENAD ---
HPI - PCP Primary Care Physician: NFD - Complaint/Symptoms Chief Complaint Doctors Comments: Patient admits to having dry skin on neck, the rash started itching on last night and interrupted his sleep. Chief Complaint:: "My neck started itching last night and I couldn't sleep at all." - Source History Provided: Patient - Mode of Arrival Mode of Arrival: Ambulatory - Timing Onset of Chief Complaint: 07/09/17 PMH - PMH Past Medical History: Yes Past Medical History: Dyslipidemia, Seizures Past Surgical History: Yes Surgical History: TURP, Other - Family History History of Family Medical Conditions: No - Social History Does patient currently use any type of tobacco product: No Have you used tobacco products in the last 12 months: No Type of Tobacco Use: None Does any household member use tobacco: No Alcohol Use: None Do you use any recreational Drugs:: No Lives With: Alone Lives Where: Home - infectious screening In the last 2 months have you had wt loss of >10#?: NO Have you had fever, night sweats or hemotysis?: No Have you traveled outside the country in the last 6 months?: No Isolation: Standard ROS - Review of Systems Eyes: No Symptoms Reported ENTM: No Symptoms Reported Respiratoy: No Symptoms Reported Cardiovascular: No Symptoms Reported Gastrointestinal/Abdominal: No Symptoms Reported Genitourinary: No Symptoms Reported Neurological: No Symptoms Reported Musculoskeletal: No Symptoms Reported Integumentary: See HPI, Lesions (dry rough skin right posterior lateral cervical spine) Hematologic/Lymphatic: No Symptoms Reported Endocrine: No Symptoms Reported Psychiatric: No Symptoms Reported All Other Systems: Reviewed and Negative PE - Vital Signs Vitals: Temperature 98.6 F Pulse Rate 78 Respiratory Rate 18 Blood Pressure [Left Arm] 104/55 Blood Pressure [Right Arm] 112/58 Blood Pressure 196/93 O2 Sat by Pulse Oximetry 98 - General Limitations: No Limitations General Appearance: Alert, In No Apparent Distress - Head Head Exam: Normal Inspection, Atraumatic - Eyes Eye exam: Normal Appearance, PERRL, EOMI - ENT ENT Exam: Normal Exam External Ear Exam: Normal External Inspection TM/Canal Exam: Bilateral Normal Nose Exam: Normal Nose Exam Mouth Exam: Normal Inspection Throat Exam: Normal Inspection - Neck Neck Exam: Normal Inspection, Full ROM - Chest Chest Inspection: Normal Inspection - Respiratory Respiratory Exam: Normal Lung Sounds Bilat Respiratory Exam: Bilateral Clear to Auscultation - Cardiovascular Cardiovascular Exam: Regular Rate - Abdominal Exam Abdominal Exam: Normal Inspection Abdominal Tenderness: negative: RUQ, RLQ, LUQ, LLQ, Epigastrium, Suprapubic, Diffuse, Mild, Moderate, Severe, Other - Extremities Extremities Exam: Normal Inspection - Back Back Exam: Normal Inspection - Neurologic Neurological Exam: Alert, CN II-XII Intact - Psychiatric Psychiatric Exam: Normal Affect, Normal Mood - Skin Skin Exam: Warm, Dry, Rash (right posterior lateral neck dry skin) - Diagnosis Discharge Problem: Dyshidrosis - Discharge Plan Condition: Stable - Follow ups/Referrals Follow ups/Referrals: NFD,None [Primary Care Provider] - 3 days - Instructions
[2017-07-09] MEDS ORDERED: DECADRON JET NEB (RESP USE) NEB ONE (09:16)
== END 2017-07-09 09:30 | disposition home or self-care (01) ==
LOC: ER 08:57
DX: L30.1 Dyshidrosis [pompholyx] (principal)
CPT/HCPCS: 96372; 99282; J1100

== ENCOUNTER 2017-10-01 09:29 | Emergency (ER) | payer OTHER ==
[2017-10-01 09:33] VITALS: BP 136/69; BMI 25.8
--- NOTE | 2017-10-01 10:14 | DR.UPM ---
HPI - Time Seen Time seen: 10:05 - PCP Primary Care Physician: ZEINA - Complaint Chief Complaint Doctors Comments: He complains of 2 to 3 days of urinary frequency and urgency without dysuria or hematuria. He has no fever of flank pain. He had been diagnosed with BPH but had self stopped taking those meds a long saúl ago he states. Chief Complaint:: PT. STATES FOR SEVERAL DAYS HE HAS BEEN UNABLE TO HOLD HIS URINE. PT. HAS A HX. OF PROSTATE PROBLEMS - Reviewed Nurses Notes Reviewed: Yes - Source History Provided: Patient - Mode of Arrival Mode of Arrival: Ambulatory - Timing Onset of Chief Complaint: 09/29/17 - Context Urinary Symptoms: Frequency, Urgency History of: BPH - Modifying Factors Medications: None PMH - PMH Past Medical History: Yes Past Medical History: Dyslipidemia, Seizures Past Medical History Comment: PROSTATE PROBLEMS Past Surgical History: Yes Surgical History: TURP, Other - Family History History of Family Medical Conditions: No - Social History Does patient currently use any type of tobacco product: Yes Have you used tobacco products in the last 12 months: Yes Type of Tobacco Use: DIPS Does any household member use tobacco: No Alcohol Use: None Do you use any recreational Drugs:: No Lives With: Alone Lives Where: Home - infectious screening In the last 2 months have you had wt loss of >10#?: NO Have you had fever, night sweats or hemotysis?: No Have you traveled outside the country in the last 6 months?: No Isolation: Standard ROS - Review of Systems Constitutional: No Symptoms Reported Eyes: No Symptoms Reported ENTM: No Symptoms Reported Respiratoy: No Symptoms Reported Cardiovascular: No Symptoms Reported Gastrointestinal/Abdominal: No Symptoms Reported Genitourinary: Frequency, Other (urinary urgency) Neurological: No Symptoms Reported Musculoskeletal: No Symptoms Reported Integumentary: No Symptoms Reported Hematologic/Lymphatic: No Symptoms Reported Endocrine: No Symptoms Reported Psychiatric: No Symptoms Reported All Other Systems: Reviewed and Negative PE - Vital Signs Vitals: Temperature 98.8 F Pulse Rate 66 Respiratory Rate 17 Blood Pressure [Left Arm] 104/55 Blood Pressure [Right Arm] 112/58 Blood Pressure 136/69 O2 Sat by Pulse Oximetry 96 - General Limitations: No Limitations General Appearance: Alert, In No Apparent Distress - Head Head Exam: Normal Inspection - Eyes Eye exam: Normal Appearance - ENT ENT Exam: Normal Exam - Neck Neck Exam: Normal Inspection, Full ROM, Trachea Midline - Chest Chest Inspection: Normal Inspection, Symmetric Chest Wall Rise - Respiratory Respiratory Exam: Normal Lung Sounds Bilat - Cardiovascular Cardiovascular Exam: Regular Rate, Normal Rhythm, Normal Heart Sounds, +S1, +S2 - Abdominal Exam Abdominal Exam: Normal Inspection, Normal Bowel Sounds, Soft - Rectal Rectal Exam: Normal Inspection, Normal Rectal Tone, Other (large, non-tender prostate.) - Genitourinary Exam: Male: Other (uncircumcised) Scrotal Exam: Normal: Bilateral - Extremities Extremities Exam: Normal Inspection - Back Back Exam: Normal Inspection - Neurologic Neurological Exam: Alert, Oriented X3 - Psychiatric Psychiatric Exam: Normal Affect, Normal Mood - Skin Skin Exam: Warm, Dry, Intact, Normal Color Course - Reevaluation 1st: Unchanged 2nd: Unchanged - Education/Counseling Education/Counseling: Patient, Education, Counseling Educated On: Treatment, Diagnosis, Prognosis, Needs for Follow Up ROR - Labs Reviewed Laboratory: Specimen Type Random urine 10/01/17 11:02 Urine Color Yellow (YELLOW) 10/01/17 11:02 Urine Appearance Clear (CLEAR) 10/01/17 11:02 Urine pH 7.0 (5.0 - 8.0) 10/01/17 11:02 Ur Specific [place] 1.010 (1.000-1.030) 10/01/17 11:02 Urine Protein Negative (NEGATIVE) 10/01/17 11:02 Urine Glucose (UA) Negative (NEGATIVE) 10/01/17 11:02 Urine Ketones Negative (NEGATIVE) 10/01/17 11:02 Urine Occult Blood Negative (NEGATIVE) 10/01/17 11:02 Urine Nitrite Negative (NEGATIVE) 10/01/17 11:02 Urine Bilirubin Negative (NEGATIVE) 10/01/17 11:02 Urine Urobilinogen Normal (NORMAL) 10/01/17 11:02 Ur Leukocyte Esterase Negative (NEGATIVE) 10/01/17 11:02 - Diagnosis Discharge Problem: BPH NOS w/o ur obs/LUTS - Discharge Plan Disposition: 01 HOME, SELF-CARE Condition: Stable - Follow ups/Referrals Follow ups/Referrals: Calin Armenta [Primary Care Provider] - 3 days - Instructions Instructions: Benign Prostatic Hypertrophy
[2017-10-01] MEDS ORDERED: FLOMAX ONE (10:57)
[2017-10-01 11:20] LABS: BILIRUBIN,URINE NEGATIVE (NEGATIVE); BLOOD/HEMOGLOBIN,URINE NEGATIVE (NEGATIVE); GLUCOSE, URINE NEGATIVE (NEGATIVE); KETONES,URINE NEGATIVE (NEGATIVE); LEUKOCYTE ESTERASE ,URINE NEGATIVE (NEGATIVE); NITRITES,URINE NEGATIVE (NEGATIVE); PROTEIN,URINE NEGATIVE (NEGATIVE); UROBILINOGEN,URINE NORMAL (NORMAL)
[2017-10-01 11:21] LABS: APPEARANCE,URINE CLEAR (CLEAR); COLOR,URINE YELLOW (YELLOW)
[2017-10-02] MEDS ORDERED: FLOMAX PO ONE (10:35)
== END 2017-10-01 11:43 | disposition home or self-care (01) ==
LOC: ER 09:42
DX: N40.0 Benign prostatic hyperplasia without lower urinary tract symptoms (principal); R03.0 Elevated blood-pressure reading, without diagnosis of hypertension; R35.0 Frequency of micturition
CPT/HCPCS: 81003; 99282

== ENCOUNTER → 2017-10-09 | Outpatient (CLI) | payer OTHER ==
[2017-10-01 09:33] VITALS: BP 136/69
--- NOTE | 2017-10-09 13:18 | CT ---
Examination: CT of the head. Clinical history: Episodes of dizziness. Technique: Multiple axial images were obtained from the skull base to the vertex. Dose reduction tech niques including automated exposure control (AEC) and adjustment of mA and kV were utilized. Comparison: 12/16/2014. 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 There is no intra-, or extra-axial hemorrhage, acute infarct or mass lesion noted. There is prominence of the CSF spaces consistent with age related cerebral atrophy. The ventricles ar e symmetric about the midline, with no midline shift or mass effect noted. The posterior fossa, brain stem and orbital regions are within normal limits. The nasal septum is deviated to the right and there is a 4 mm bony nasal spur seen projecting to the right. No additional bony or soft tissue abnormality is noted. Impression: 1. No acute infarct or hemorrhage. 2. Age-related cerebral atrophy. 3. 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 Reported By:
== END ==
LOC: RAD 12:43
PROVIDERS: ATTEND Internal Medicine
DX: R27.0 Ataxia, unspecified (principal)
CPT/HCPCS: 70450

== ENCOUNTER 2018-09-24 11:39 | Observation (INO) ==
[2018-09-24 13:52] LABS: BASOPHILS % (AUTO) 0.6 % (0.2-1.0); EOSINOPHILS # (AUTO) 0.3 x10^3/uL (0.0-0.2); EOSINOPHILS % (AUTO) 4.9 % (0.9-2.9); HEMATOCRIT 39.8 % (42.0-54.0); HEMOGLOBIN 13.1 g/dL (13.5-18.0); LYMPHOCYTES # (AUTO) 1.5 X10^3/uL (1.3-2.9); LYMPHOCYTES % (AUTO) 27.5 % (21.0-51.0); MEAN CORPUSCULAR HEMOGLOBIN 27.8 pg (27.0-34.0); MEAN CORPUSCULAR VOLUME 84.3 fL (80.0-100.0); MEAN PLATELET VOLUME 7.4 fL (7.4-11.0); MONOCYTES # (AUTO) 0.4 x10^3/uL (0.3-0.8); MONOCYTES % (AUTO) 7.1 % (0.0-13.0); NEUTROPHILS # (AUTO) 3.4 x10^3/uL (2.2-4.8); NEUTROPHILS % (AUTO) 59.9 % (42.0-75.0); PLATELET COUNT 177 X10^3/uL (150.0-450.0); RED BLOOD COUNT 4.72 X10^6/uL (4.7-6.0); RED CELL DISTRIBUTION WIDTH 16.9 % (11.6-16.5); WHITE BLOOD COUNT 5.6 X10^3/uL (3.6-10.0)
[2018-09-24 14:04] LABS: ALANINE AMINOTRANSFERASE 14 Units/L (12-78); ALBUMIN 3.4 g/dL (3.4-5.0); ALKALINE PHOSPHATASE 124 Units/L (46-116); ASPARTATE AMINO TRANSFERASE 15 Units/L (15-37); BLOOD UREA NITROGEN 15 mg/dL (7-18); CALCIUM 8.5 mg/dL (8.5-10.1); CARBON DIOXIDE 28.2 mmol/L (21-32); CHLORIDE 105 mmol/L (98-107); CREATININE 1.09 mg/dL (0.70-1.30); SODIUM 140 mmol/L (136-145); TOTAL PROTEIN 6.4 g/dL (6.4-8.2); eGFR NON BLACK RACES > 60 (>60)
[2018-09-24 14:16] LABS: TOTAL PSA 0.42 ng/mL (0.13-4.0)
[2018-09-24] MEDS: NS 1000 ML 1,000 ML IV SCH (14:47)
[2018-09-24 14:53] LABS: BILIRUBIN,URINE NEGATIVE (NEGATIVE); BLOOD/HEMOGLOBIN,URINE NEGATIVE (NEGATIVE); GLUCOSE, URINE NEGATIVE (NEGATIVE); KETONES,URINE NEGATIVE (NEGATIVE); LEUKOCYTE ESTERASE ,URINE NEGATIVE (NEGATIVE); NITRITES,URINE NEGATIVE (NEGATIVE); PROTEIN,URINE NEGATIVE (NEGATIVE); UROBILINOGEN,URINE NORMAL (NORMAL)
[2018-09-24 14:54] LABS: APPEARANCE,URINE CLEAR (CLEAR); COLOR,URINE YELLOW (YELLOW)
[2018-09-24 15:10] VITALS: BMI 21.1
[2018-09-24] MEDS: FLOMAX PO SCH (20:29)
[2018-09-24] MEDS: COMBIGAN EYE DROPS EACHEYE SCH (20:39)
[2018-09-24] MEDS: TRAVATAN Z EACHEYE SCH (20:40)
[2018-09-24] MEDS ORDERED: DILANTIN CAP 100 MG EXT REL PO ONE (20:40)
[2018-09-24] MEDS: DILANTIN CAP 100 MG EXT REL PO SCH (20:41)
[2018-09-25] MEDS: NS 1000 ML 1,000 ML IV SCH ×2 (04:22→18:48)
[2018-09-25 05:57] LABS: BASOPHILS % (AUTO) 0.6 % (0.2-1.0); EOSINOPHILS # (AUTO) 0.3 x10^3/uL (0.0-0.2); EOSINOPHILS % (AUTO) 4.1 % (0.9-2.9); HEMATOCRIT 39.3 % (42.0-54.0); LYMPHOCYTES # (AUTO) 1.5 X10^3/uL (1.3-2.9); LYMPHOCYTES % (AUTO) 24.4 % (21.0-51.0); MEAN CORPUSCULAR HEMOGLOBIN 28.2 pg (27.0-34.0); MEAN CORPUSCULAR HGB CONC 33.1 g/dL (33.0-35.0); MEAN CORPUSCULAR VOLUME 85.2 fL (80.0-100.0); MEAN PLATELET VOLUME 7.8 fL (7.4-11.0); MONOCYTES # (AUTO) 0.4 x10^3/uL (0.3-0.8); NEUTROPHILS % (AUTO) 63.9 % (42.0-75.0); PLATELET COUNT 160 X10^3/uL (150.0-450.0); RED BLOOD COUNT 4.61 X10^6/uL (4.7-6.0); RED CELL DISTRIBUTION WIDTH 16.5 % (11.6-16.5); WHITE BLOOD COUNT 6.3 X10^3/uL (3.6-10.0)
[2018-09-25 06:09] LABS: ALANINE AMINOTRANSFERASE 13 Units/L (12-78); ALBUMIN 3.1 g/dL (3.4-5.0); ALKALINE PHOSPHATASE 115 Units/L (46-116); ASPARTATE AMINO TRANSFERASE 17 Units/L (15-37); BLOOD UREA NITROGEN 16 mg/dL (7-18); CALCIUM 8.2 mg/dL (8.5-10.1); CARBON DIOXIDE 25.4 mmol/L (21-32); CHLORIDE 109 mmol/L (98-107); COR CA(FOR HYPOALB) 8.9 mg/dL (8.5-10.1); CREATININE 1.11 mg/dL (0.70-1.30); SODIUM 142 mmol/L (136-145); eGFR NON BLACK RACES > 60 (>60)
[2018-09-25] MEDS: COMBIGAN EYE DROPS EACHEYE SCH ×2 (08:34→20:10)
[2018-09-25] MEDS: TOPROL XL PO SCH (08:35)
[2018-09-25] MEDS: OXYBUTYNIN CHLORIDE ER PO SCH (08:35)
[2018-09-25] MEDS: DILANTIN CAP 100 MG EXT REL PO SCH ×2 (08:35→20:09)
--- NOTE | 2018-09-25 09:25 | DR.UPDATE ---
H&P Update History and Physical Update: WAS SEEN IN THE OFFICE TODAY FOR URINARY INCONTINENCE FOR THE PAST 4 DAYS. HE WAS ADMITTED FOR FURTHER EVALUATION AND TREATMENT OF SEVERE BPH. WE PLAN TO OBTAIN LABS AND PLACE A MANZO ON ADMISSION. OTHERWISE, WE WILL FOLLOW-UP AND CONTINUE TO MONITOR. Changes noted: NO
[2018-09-25] MEDS ORDERED: PHARMACY CONSULT - DOSE _____ XX SCH (12:00)
[2018-09-25] MEDS: FLOMAX PO SCH (20:09)
[2018-09-25] MEDS: TRAVATAN Z EACHEYE SCH (20:13)
--- NOTE | 2018-09-25 21:10 | PCM.PROG ---
Progress Note - Progress Note for Day of Date of Exam: 09/25/18 - Subjective Subjective: WAS ADMITTED FOR SEVERE BPH WITH URINARY INCONTINENCE. ON ADMISSION, A MANZO CATHETER WAS PLACED. THIS MORNING, PATIENT ADMITS TO RELIEF OF PAIN AFTER CATHETER WAS INSERTED. HE IS ALERT AND ORIENTED, LYING IN BED ON MORNING ROUNDS. ON EXAMINATION, HEART IS REGULAR IN RATE AND RHYTHM. BILATERAL LUNGS ARE NOTED WITH DIMINISHED LUNG SOUNDS THROUGHOUT. ABDOMEN IS ROUND, SOFT, AND NON-TENDER WITH NORMAL BOWEL SOUNDS NOTED IN ALL QUADRANTS. HIS VITALS THIS MORNING ARE 98.2-83-18-93%-139/81. LABS WERE OBTAINED. ABNORMAL LAB VALUES INCLUDE THE FOLLOWING: RBC 4.61, HGB 13.0, HCT 39.3, CHLORIDE 109, CALCIUM 8.2, TOTAL PROTEIN 6.0, ALBUMIN 3.1. A URINE CULTURE IS PENDING. WE WILL CONTINUE TO MONITOR PAIN AND URINE OUTPUT TODAY. WE WILL SCHEDULE APPOINTMENT WITH UROLOGIST FOR AFTER DISCHARGE. OTHERWISE, WE PLAN TO FOLLOW UP WITH AM LABS AND CONTINUE TO MONITOR. - Past Medical Family Social History Past Med/Fam/Surg Hx: No changes since H&P Allergies: Allergies No Known Drug Allergies Allergy (Verified 09/23/18 09:56) - Review of Systems ROS: No change since H&P - Vital Signs and I&O's Vital Signs: Temperature 98.4 F Pulse Rate [Apical] 79 Respiratory Rate 20 Blood Pressure [Left Arm] 167/72 Blood Pressure [Right Arm] 112/58 Blood Pressure 121/73 O2 Sat by Pulse Oximetry 96 Intake and Output: Intake & Output 09/23/18 09/24/18 09/25/18 09/26/18 11:59 11:59 11:59 11:59 Intake Total 1465 / 1465 700 / 700 Output Total 1974 1400 / 1400 Balance -510 / -510 -700 / -700 - Physical Exam Oriented: Normal Eyes: Normal Ear: Normal Nose: Normal Throat: Normal Respiratory: Normal Cardiovascular: Normal : Normal, Other (MANZO CATHETER TO BEDSIDE DRAINAGE ) Auscultation: Bowel Sounds: Normal Palpation: Normal Tenderness: Normal Skin: Normal Musculoskeletal: Normal Psychiatric: Normal Mood Description: Calm Affect: Normal Speech Pattern: Clear, Appropriate - Laboratory and Diagnostics Result Diagrams: 09/25/18 05:20 09/25/18 05:20 Labs: 09/24/18 14:45 Urine,Catheterized Urine Culture - Preliminary Laboratory WBC 6.3 X10^3/uL (3.6-10.0) 09/25/18 05:20 RBC 4.61 X10^6/uL (4.7-6.0) L 09/25/18 05:20 Hgb 13.0 g/dL (13.5-18.0) L 09/25/18 05:20 Hct 39.3 % (42.0-54.0) L 09/25/18 05:20 MCV 85.2 fL (80.0-100.0) 09/25/18 05:20 MCH 28.2 pg (27.0-34.0) 09/25/18 05:20 MCHC 33.1 g/dL (33.0-35.0) 09/25/18 05:20 RDW 16.5 % (11.6-16.5) 09/25/18 05:20 Plt Count 160 X10^3/uL (150.0-450.0) 09/25/18 05:20 MPV 7.8 fL (7.4-11.0) 09/25/18 05:20 Neut % (Auto) 63.9 % (42.0-75.0) 09/25/18 05:20 Lymph % (Auto) 24.4 % (21.0-51.0) 09/25/18 05:20 [place] % (Auto) 7.0 % (0.0-13.0) 09/25/18 05:20 Eos % (Auto) 4.1 % (0.9-2.9) H 09/25/18 05:20 Baso % (Auto) 0.6 % (0.2-1.0) 09/25/18 05:20 Neut # (Auto) 4.0 x10^3/uL (2.2-4.8) 09/25/18 05:20 Lymph # (Auto) 1.5 X10^3/uL (1.3-2.9) 09/25/18 05:20 [place] # (Auto) 0.4 x10^3/uL (0.3-0.8) 09/25/18 05:20 Eos # (Auto) 0.3 x10^3/uL (0.0-0.2) H 09/25/18 05:20 Baso # (Auto) 0.0 X10^3/uL (0.0-0.1) 09/25/18 05:20 Absolute Nucleated RBC 0.0 /100WBC 09/25/18 05:20 Sodium 142 mmol/L (136-145) 09/25/18 05:20 Corrected Sodium TNP 09/25/18 05:20 Potassium 4.2 mmol/L (3.5-5.1) 09/25/18 05:20 Chloride 109 mmol/L (98-107) H 09/25/18 05:20 Carbon Dioxide 25.4 mmol/L (21-32) 09/25/18 05:20 BUN 16 mg/dL (7-18) 09/25/18 05:20 Creatinine 1.11 mg/dL (0.70-1.30) 09/25/18 05:20 Est GFR (MDRD) Af Amer > 60 (>60) 09/25/18 05:20 Est GFR (MDRD) Non-Af > 60 (>60) 09/25/18 05:20 Glucose 98 mg/dL (65-99) 09/25/18 05:20 Calcium 8.2 mg/dL (8.5-10.1) L 09/25/18 05:20 Corrected Calcium 8.9 mg/dL (8.5-10.1) 09/25/18 05:20 Total Bilirubin 0.30 mg/dL (0.2-1.0) 09/25/18 05:20 AST 17 Units/L (15-37) 09/25/18 05:20 ALT 13 Units/L (12-78) 09/25/18 05:20 Alkaline Phosphatase 115 Units/L (46-116) 09/25/18 05:20 Total Protein 6.0 g/dL (6.4-8.2) L 09/25/18 05:20 Albumin 3.1 g/dL (3.4-5.0) L 09/25/18 05:20 Globulin 2.9 g/dL (2.5-4.5) 09/25/18 05:20 Albumin/Globulin Ratio 1.1 Ratio (1.1-2.1) 09/25/18 05:20 Total PSA 0.42 ng/mL (0.13-4.0) 09/24/18 13:41 Specimen Type Catherized urine 09/24/18 14:45 Urine Color Yellow (YELLOW) 09/24/18 14:45 Urine Appearance Clear (CLEAR) 09/24/18 14:45 Urine pH 7.0 (5.0 - 8.0) 09/24/18 14:45 Ur Specific [place] 1.010 (1.000-1.030) 09/24/18 14:45 Urine Protein Negative (NEGATIVE) 09/24/18 14:45 Urine Glucose (UA) Negative (NEGATIVE) 09/24/18 14:45 Urine Ketones Negative (NEGATIVE) 09/24/18 14:45 Urine Occult Blood Negative (NEGATIVE) 09/24/18 14:45 Urine Nitrite Negative (NEGATIVE) 09/24/18 14:45 Urine Bilirubin Negative (NEGATIVE) 09/24/18 14:45 Urine Urobilinogen Normal (NORMAL) 09/24/18 14:45 Ur Leukocyte Esterase Negative (NEGATIVE) 09/24/18 14:45 - Plan (1) BPH with obstruction/lower urinary tract symptoms Status: Acute Plan: MANZO CATHETER, CONTINUE TO MONITOR
[2018-09-26] MEDS: NS 1000 ML 1,000 ML IV SCH (04:55)
[2018-09-26 05:45] LABS: BASOPHILS % (AUTO) 0.4 % (0.2-1.0); EOSINOPHILS # (AUTO) 0.2 x10^3/uL (0.0-0.2); EOSINOPHILS % (AUTO) 3.7 % (0.9-2.9); HEMATOCRIT 40.9 % (42.0-54.0); HEMOGLOBIN 13.5 g/dL (13.5-18.0); LYMPHOCYTES # (AUTO) 1.5 X10^3/uL (1.3-2.9); LYMPHOCYTES % (AUTO) 22.8 % (21.0-51.0); MEAN CORPUSCULAR HGB CONC 32.9 g/dL (33.0-35.0); MEAN CORPUSCULAR VOLUME 85.2 fL (80.0-100.0); MEAN PLATELET VOLUME 8.1 fL (7.4-11.0); MONOCYTES # (AUTO) 0.4 x10^3/uL (0.3-0.8); MONOCYTES % (AUTO) 6.3 % (0.0-13.0); NEUTROPHILS # (AUTO) 4.4 x10^3/uL (2.2-4.8); NEUTROPHILS % (AUTO) 66.8 % (42.0-75.0); PLATELET COUNT 173 X10^3/uL (150.0-450.0); RED CELL DISTRIBUTION WIDTH 16.3 % (11.6-16.5); WHITE BLOOD COUNT 6.6 X10^3/uL (3.6-10.0)
[2018-09-26 06:01] LABS: ALANINE AMINOTRANSFERASE 16 Units/L (12-78); ALBUMIN 3.3 g/dL (3.4-5.0); ALKALINE PHOSPHATASE 119 Units/L (46-116); ASPARTATE AMINO TRANSFERASE 19 Units/L (15-37); BLOOD UREA NITROGEN 19 mg/dL (7-18); CALCIUM 8.4 mg/dL (8.5-10.1); CARBON DIOXIDE 24.6 mmol/L (21-32); CHLORIDE 109 mmol/L (98-107); CREATININE 1.13 mg/dL (0.70-1.30); SODIUM 143 mmol/L (136-145); TOTAL PROTEIN 6.3 g/dL (6.4-8.2); eGFR NON BLACK RACES > 60 (>60)
[2018-09-26] MEDS: OXYBUTYNIN CHLORIDE ER PO SCH (07:59)
[2018-09-26] MEDS: TOPROL XL PO SCH (07:59)
[2018-09-26] MEDS: DILANTIN CAP 100 MG EXT REL PO SCH (07:59)
[2018-09-26] MEDS: COMBIGAN EYE DROPS EACHEYE SCH (08:55)
[2018-09-26] MEDS ORDERED: LOVENOX INJ 40 MG SYR SC SCH (09:00)
[2018-09-26 09:07] VITALS: BP 134/75
== END 2018-09-26 11:50 | disposition home or self-care (01) ==
LOC: MED/SURG
PROVIDERS: ADMIT Internal Medicine; ATTEND Internal Medicine
DX: N40.0 Benign prostatic hyperplasia without lower urinary tract symptoms; Z79.899 Other long term (current) drug therapy; R32 Unspecified urinary incontinence; R26.89 Other abnormalities of gait and mobility
CPT/HCPCS: 36415; 80053; 81003; 84153; 85025; 87086; 96367; 96372; 97116; 97162; 97530; A4216; A4222; G0378; J1650; J7030

== ENCOUNTER 2019-11-05 20:50 | Inpatient (IN) ==
--- NOTE | 2019-11-05 21:57 | DR.ABDMALE ---
HPI Time seen Time Seen by Provider: 11/05/19 21:39 PCP Primary Care Physician: ZEINA HPI comment HPI Comment: PATIENT IS 79YR OLD FEMALE IN ER WITH LOWER ABDOMINAL PAIN RADIATING TO THE UPPER ANDOMEN SINCE THIS AM. NOW PAIN DIFFUSED. NO FEVER. NAUSEATED BUT NO VOMITING OR DIARRHEA. HISTORY URINARY RETENSION. S/P TURP. URINE OUTPUT DECREASE CURRENTLY BUT NO RETENSION. HAVE NOT HAD BOWEL MOVEMENT TODAY. TOOK DUCOLAX WITHOUT RESULT. PAIN SHARP 5/10 CURRENTLY AND RADIATES TO UPPER ABDOMEN. NO SILAR PAIN PREVIOUSLY. EXERTION INCREASES PAIN AND REST HELP PAIN. DENIES BLOOD IN STOOL. PATIENT HAVE NOT DONE ANY RECENT TRAVEL AND HAVE NOT BEING IN CONTACT WITH PATIENT WITH COVID 19 INFECTION. Complaint Chief Complaint Doctors Comments: ABDOMINAL PAIN ALL DAY. NOT ABLE TO HAVE BOWEL MOVEMENT. Chief Complaint:: PATIENT STATES HE HAS HAD STOMACH PAIN ALL DAY AND UNABLE TO HAVE BUT A SMALL BOWEL MOEMENT AT THE TIME, TOOK DULCOLAX WITH NO RESULTS Self Treatment fo Chief Complaint: DULCOLAX COVID-19 Coronavirus risk:travel/contact w/high risk person: No Has patient experienced Coronavirus symptoms: No Reviewed Nurses Notes Review: Yes Mode of arrival Mode of Arrival: Ambulatory Timing Onset of Chief Complaint: 11/05/19 Came on: Suddenly Duration Duration: Constant Duration: Hours Location Location: Diffuse Severity Severity: Moderate Quality Quality: Sharp Context Onset: Suddenly History of: None Modifying factors Worsening Factors: Exertion Associated signs and symptoms Associated Signs and Symptoms: Nausea and Constipation Other history Other History: HISTORY URINARY RETENTION PMH PMH Past Medical History: Yes Past Medical History: Hypertension and Seizures Past Surgical History: Yes Surgical History: TURP Family History History of Family Medical Conditions: No Social History Does patient currently use any type of tobacco product: No Have you used tobacco products in the last 12 months: No Type of Tobacco Use: None Does any household member use tobacco: No Alcohol Use: None Do you use any recreational Drugs:: No Lives With: Alone Lives Where: Home Travel Risk Coronavirus risk:travel/contact w/high risk person: No Has patient experienced Coronavirus symptoms: No Infectious screening In the last 2 months have you had wt loss of >10#?: NO Have you had fever, night sweats or hemotysis?: No Have you traveled outside the country in the last 6 months?: No Isolation: Standard ROS Review of Systems Constitutional: See HPI, Weakness and Fatigue; negative Fever Eyes: No Symptoms Reported, See HPI and Other (WEAK RIGHT EYE MUSCLE, CONGENITAL.); negative Blurred Vision and Diplopia ENTM: No Symptoms Reported, See HPI and Ear Pain; negative Nose Discharge, Nose Congestion and Throat Pain Respiratoy: See HPI and Short of Breath (ON EXERTION.); negative Moist Cough and Wheezing Cardiovascular: No Symptoms Reported and See HPI; negative Chest Pain and Edema Gastrointestinal/Abdominal: See HPI, Abdominal Pain, Constipation and Nausea Genitourinary: See HPI, Frequency and Other (HISTORY URINARY RETENTION) Neurological: See HPI and Weakness; negative Headache and Dizziness Musculoskeletal: See HPI and Back Pain Integumentary: No Symptoms Reported and See HPI; negative Change in Color, Rash and Juandice Hematologic/Lymphatic: No Symptoms Reported and See HPI; negative Easy Bruising and Swollen Glands Endocrine: No Symptoms Reported and See HPI; negative Increased Thirst and Increased Urine Psychiatric: No Symptoms Reported and See HPI All Other Systems: Reviewed and Negative PE Vital Signs Vital Signs: Temp Pulse Resp BP BP BP Pulse Ox 11/05/19 21:02 98.4 F 70 20 135/86 95 08/04/19 10:35 112/69 03/17/19 12:33 115/67 09/26/18 08:00 134/75 General Limitations: No Limitations General Appearance: Alert and In Distress (SOB ON EXERTION.) Head Head Exam: Normal Inspection and Atraumatic Eyes Eye exam: Normal Appearance and PERRL; negative Scleral Icterus and Conjunctival Injection ENT ENT Exam: Normal Exam, Normal Oropharynx, Normal External Ear Exam and TM's Normal Bilaterally Neck Neck Exam: Normal Inspection and Trachea Midline; negative Tenderness and Lymphadenopathy Chest Chest Inspection: Normal Inspection and Symmetric Chest Wall Rise; negative Tenderness Respiratory Respiratory Exam: Normal Lung Sounds Bilat; negative Accessory Muscle Use, Chest Wall Tenderness and Respiratory Distress Respiratory Exam: Bilateral: Rales and Lower: Rhonchi Cardiovascular Cardiovascular Exam: Regular Rate, Normal Rhythm and Normal Heart Sounds Abdominal Exam Abdominal Exam: Normal Bowel Sounds, Soft and Tenderness Abdominal Tenderness: Diffuse and Moderate Rectal Rectal Exam: Deferred Back Back Exam: Normal Inspection; negative (R) CVA Tenderness and (L) CVA Tenderness Extremeties Extremities Exam: Normal Inspection Exam: Male: Deferred Neurologic Neurological Exam: Alert and Oriented X3; negative Motor Sensory Deficit Psychiatric Psychiatric Exam: Normal Affect and Normal Mood Skin Skin Exam: Warm, Dry, Intact and Normal Color MDM Differential Diagnosis Differential Diagnosis: Bowel Obstruction, Cholcystitis, Cholelethiasis, Constipation, Diverticular disease, Gastritus/PUD, Inflammatory BD, Ischemic Bowel, Pancreatitis, Urinary tract infection and Urolithiasis COURSE Treatment Treatment: SEE ORDERS. NS 75CC/HR AND FLAGYL 500MG IVPB IN ER. Consultation Consultation Comments: DISCUSSED PATIENT WITH DR. RÍOS. HE WILL ADMIT PATIENT. Education/Counseling Education/Counseling: Patient Educated On: Diagnosis ROR Labs Reviewed Laboratory Results Reviewed?: Yes Result Diagrams: 11/05/19 22:12 11/05/19 22:12 Laboratory: WBC 8.7 X10^3/uL (3.6-10.0) 11/05/19 22:12 RBC 4.58 X10^6/uL (4.7-6.0) L 11/05/19 22:12 Hgb 13.0 g/dL (13.5-18.0) L 11/05/19 22:12 Hct 39.1 % (42.0-54.0) L 11/05/19 22:12 MCV 85.5 fL (80.0-100.0) 11/05/19 22:12 MCH 28.4 pg (27.0-34.0) 11/05/19 22:12 MCHC 33.2 g/dL (33.0-35.0) 11/05/19 22:12 RDW 17.6 % (11.6-16.5) H 11/05/19 22:12 Plt Count 134 X10^3/uL (150.0-450.0) L 11/05/19 22:12 MPV 7.8 fL (7.4-11.0) 11/05/19 22:12 Neut % (Auto) 71.1 % (42.0-75.0) 11/05/19 22:12 Lymph % (Auto) 18.1 % (21.0-51.0) L 11/05/19 22:12 [place] % (Auto) 7.3 % (0.0-13.0) 11/05/19 22:12 Eos % (Auto) 3.0 % (0.9-2.9) H 11/05/19 22:12 Baso % (Auto) 0.5 % (0.2-1.0) 11/05/19 22:12 Neut # (Auto) 6.2 x10^3/uL (2.2-4.8) H 11/05/19 22:12 Lymph # (Auto) 1.6 X10^3/uL (1.3-2.9) 11/05/19 22:12 [place] # (Auto) 0.6 x10^3/uL (0.3-0.8) 11/05/19 22:12 Eos # (Auto) 0.3 x10^3/uL (0.0-0.2) H 11/05/19 22:12 Baso # (Auto) 0.0 X10^3/uL (0.0-0.1) 11/05/19 22:12 Absolute Nucleated RBC 0.0 /100WBC 11/05/19 22:12 Sodium 139 mmol/L (136-145) 11/05/19 22:12 Corrected Sodium 139 mmol/L (136-145) 11/05/19 22:12 Potassium 3.8 mmol/L (3.5-5.1) 11/05/19 22:12 Chloride 103 mmol/L (98-107) 11/05/19 22:12 Carbon Dioxide 29.9 mmol/L (21-32) 11/05/19 22:12 BUN 12 mg/dL (7-18) 11/05/19 22:12 Creatinine 1.11 mg/dL (0.70-1.30) 11/05/19 22:12 Est GFR (MDRD) Af Amer > 60 (>60) 11/05/19 22:12 Est GFR (MDRD) Non-Af > 60 (>60) 11/05/19 22:12 Glucose 111 mg/dL (65-99) H 11/05/19 22:12 Calcium 8.8 mg/dL (8.5-10.1) 11/05/19 22:12 Corrected Calcium TNP 11/05/19 22:12 Total Bilirubin 0.40 mg/dL (0.2-1.0) 11/05/19 22:12 AST 17 Units/L (15-37) 11/05/19 22:12 ALT 21 Units/L (12-78) 11/05/19 22:12 Alkaline Phosphatase 119 Units/L (46-116) H 11/05/19 22:12 Total Protein 6.6 g/dL (6.4-8.2) 11/05/19 22:12 Albumin 3.6 g/dL (3.4-5.0) 11/05/19 22:12 Globulin 3.0 g/dL (2.5-4.5) 11/05/19 22:12 Albumin/Globulin Ratio 1.2 Ratio (1.1-2.1) 11/05/19 22:12 XRAY XRAY Interpreted by: Radiologist (REPORT NOTED AND DISCUSSED WITH PATIENT.) and Self Opioid Opioid Risk Tool Age (Ander box if 16-45): No History of Preadolescent Sexual Abuse: No Total: 0 Total Score Risk Category: Low Risk Copyright: Nick GENAO predicting aberrant behaviors Diagnosis Discharge Problem: Acute diverticulitis Abdominal pain Qualifiers: Abdominal location: generalized Qualified Code(s): R10.84 - Generalized abdominal pain Instructions Forms: Excuse From Work Precautions for COVID19 Patient Portal Social Distancing
[2019-11-05 22:26] LABS: BASOPHILS % (AUTO) 0.5 % (0.2-1.0); EOSINOPHILS # (AUTO) 0.3 x10^3/uL (0.0-0.2); HEMATOCRIT 39.1 % (42.0-54.0); LYMPHOCYTES # (AUTO) 1.6 X10^3/uL (1.3-2.9); LYMPHOCYTES % (AUTO) 18.1 % (21.0-51.0); MEAN CORPUSCULAR HEMOGLOBIN 28.4 pg (27.0-34.0); MEAN CORPUSCULAR HGB CONC 33.2 g/dL (33.0-35.0); MEAN CORPUSCULAR VOLUME 85.5 fL (80.0-100.0); MEAN PLATELET VOLUME 7.8 fL (7.4-11.0); MONOCYTES # (AUTO) 0.6 x10^3/uL (0.3-0.8); MONOCYTES % (AUTO) 7.3 % (0.0-13.0); NEUTROPHILS # (AUTO) 6.2 x10^3/uL (2.2-4.8); NEUTROPHILS % (AUTO) 71.1 % (42.0-75.0); PLATELET COUNT 134 X10^3/uL (150.0-450.0); RED BLOOD COUNT 4.58 X10^6/uL (4.7-6.0); RED CELL DISTRIBUTION WIDTH 17.6 % (11.6-16.5); WHITE BLOOD COUNT 8.7 X10^3/uL (3.6-10.0)
[2019-11-05 22:34] LABS: ALANINE AMINOTRANSFERASE 21 Units/L (12-78); ALBUMIN 3.6 g/dL (3.4-5.0); ALKALINE PHOSPHATASE 119 Units/L (46-116); ASPARTATE AMINO TRANSFERASE 17 Units/L (15-37); BLOOD UREA NITROGEN 12 mg/dL (7-18); CALCIUM 8.8 mg/dL (8.5-10.1); CARBON DIOXIDE 29.9 mmol/L (21-32); CHLORIDE 103 mmol/L (98-107); COR NA(FOR HYPERGLY) 139 mmol/L (136-145); CREATININE 1.11 mg/dL (0.70-1.30); SODIUM 139 mmol/L (136-145); TOTAL PROTEIN 6.6 g/dL (6.4-8.2); eGFR NON BLACK RACES > 60 (>60)
--- NOTE | 2019-11-05 22:55 | CT ---
CT abdomen and pelvis without contrastIndication: Abdominal pain and constipationCOMPARISONSeptember 2016 CTTECHNIQUEHelical images through the abdomen and pelvis without contrast. Coronal and sagittal reformats provided.FINDINGSLimited images through the lower chest demonstrate cardiomegaly with coronary artery calcifications. Review of bone windows demonstrates spine and pelvis DJD.Abdomen: The liver, gallbladder, spleen, adrenal glands and atrophic pancreas demonstrate no acute abnormality. Kidneys show minimal atrophic change, with left upper pole renal cyst. There is no hydroureteronephrosis. Scattered vascular calcifications are noted. Postsurgical changes seen at the GE junction. Apparent antrectomy are gastric bypass changes noted, without acute gastric or small bowel abnormality appreciated, within limits of noncontrast study and motion artifact. The appendix is normal. Moderate stool seen in the colon. There is inflammation around the descending colon on axial images 48-58, compatible with acute diverticulitis. Remaining colon is normal.Pelvis: Urinary bladder and rectum are normal. Prostate gland is normal.IMPRESSION1. Acute distal descending colon diverticulitis without drainable abscess2. Cardiomegaly, vascular plaque, spine DJD and other incidental findings as above. Postsurgical changes at the stomach noted.Electronically signed by: JAS SAUL (Nov 05, 2019 22:54:18)
[2019-11-05] MEDS ORDERED: FLAGYL IV PREMIX 500 MG BAG 500 MG/100 ML BAG IV ONE ×2 (23:19→23:35)
[2019-11-05] MEDS ORDERED: NS 1000 ML 1,000 ML ONE (23:34)
[2019-11-05] MEDS ORDERED: PEPCID 20 MG IV PREMIX* 20 MG/50 ML BAG IV PRN (23:36)
[2019-11-05] MEDS ORDERED: CIPRO IV 200 MG PREMIX* 200 MG/100 ML BAG IV SCH (23:45)
[2019-11-05] MEDS: NS 1000 ML 1,000 ML IV SCH (23:46)
[2019-11-06] MEDS ORDERED: CIPRO IV 200 MG PREMIX* 200 MG/100 ML BAG IV ONE (00:20)
[2019-11-06 00:57] VITALS: BMI 19.0
[2019-11-06 03:21] LABS: BILIRUBIN,URINE NEGATIVE (NEGATIVE); BLOOD/HEMOGLOBIN,URINE NEGATIVE (NEGATIVE); GLUCOSE, URINE NEGATIVE (NEGATIVE); KETONES,URINE NEGATIVE (NEGATIVE); LEUKOCYTE ESTERASE ,URINE NEGATIVE (NEGATIVE); NITRITES,URINE NEGATIVE (NEGATIVE); PROTEIN,URINE NEGATIVE (NEGATIVE); UROBILINOGEN,URINE NORMAL (NORMAL)
[2019-11-06 03:26] LABS: APPEARANCE,URINE CLEAR (CLEAR); COLOR,URINE STRAW (YELLOW)
[2019-11-06 06:18] LABS: BASOPHILS % (AUTO) 0.3 % (0.2-1.0); EOSINOPHILS # (AUTO) 0.2 x10^3/uL (0.0-0.2); EOSINOPHILS % (AUTO) 2.7 % (0.9-2.9); HEMATOCRIT 37.5 % (42.0-54.0); HEMOGLOBIN 12.5 g/dL (13.5-18.0); LYMPHOCYTES # (AUTO) 1.1 X10^3/uL (1.3-2.9); LYMPHOCYTES % (AUTO) 15.6 % (21.0-51.0); MEAN CORPUSCULAR HEMOGLOBIN 28.5 pg (27.0-34.0); MEAN CORPUSCULAR HGB CONC 33.2 g/dL (33.0-35.0); MEAN CORPUSCULAR VOLUME 85.8 fL (80.0-100.0); MEAN PLATELET VOLUME 7.8 fL (7.4-11.0); MONOCYTES # (AUTO) 0.6 x10^3/uL (0.3-0.8); MONOCYTES % (AUTO) 8.5 % (0.0-13.0); NEUTROPHILS # (AUTO) 5.2 x10^3/uL (2.2-4.8); NEUTROPHILS % (AUTO) 72.9 % (42.0-75.0); PLATELET COUNT 115 X10^3/uL (150.0-450.0); RED BLOOD COUNT 4.37 X10^6/uL (4.7-6.0); WHITE BLOOD COUNT 7.2 X10^3/uL (3.6-10.0)
[2019-11-06 06:32] LABS: ALANINE AMINOTRANSFERASE 20 Units/L (12-78); ALBUMIN 3.2 g/dL (3.4-5.0); ALKALINE PHOSPHATASE 111 Units/L (46-116); AMYLASE 18 Units/L (25-115); ASPARTATE AMINO TRANSFERASE 16 Units/L (15-37); BLOOD UREA NITROGEN 12 mg/dL (7-18); CALCIUM 8.2 mg/dL (8.5-10.1); CARBON DIOXIDE 27.6 mmol/L (21-32); CHLORIDE 106 mmol/L (98-107); COR CA(FOR HYPOALB) 8.8 mg/dL (8.5-10.1); CREATININE 0.92 mg/dL (0.70-1.30); LIPASE 41 Units/L (73-393); SODIUM 140 mmol/L (136-145); eGFR NON BLACK RACES > 60 (>60)
[2019-11-06] MEDS: DETROL LA 4 MG CAP EXT REL PO SCH (08:56)
[2019-11-06] MEDS: FLOMAX PO SCH ×2 (08:56→21:12)
[2019-11-06] MEDS: DILANTIN CAP 100 MG EXT REL PO SCH ×2 (08:57→20:43)
[2019-11-06] MEDS: TOPROL XL PO SCH (08:57)
[2019-11-06] MEDS: CIPRO IV 400 MG PREMIX* 400 MG/200 ML IV.SOLN. IV SCH ×2 (09:04→20:43)
[2019-11-06] MEDS: COMBIGAN EYE DROPS EACHEYE SCH ×2 (10:38→20:43)
[2019-11-06] MEDS: NS 1000 ML 1,000 ML IV SCH ×2 (12:26→16:46)
[2019-11-06] MEDS: LOVENOX INJ 40 MG SYR SC SCH (13:19)
[2019-11-06] MEDS: TRAVATAN Z EACHEYE SCH (20:43)
--- NOTE | 2019-11-06 22:45 | DR.H&P ---
H&P - History & Physical for Day of: H&P Date: 11/05/19 - Chief Complaint Chief Complaint: ABDOMINAL PAIN, NAUSEA, WEAKNESS, FATIGUE, DECREASED URINE OUTPUT - History of Present Illness History of Present Illness: IS A 79 YEAR OLD PATIENT OF OURS WHO PRESENTED TO THE ER WITH COMPLAINTS OF GENERALIZED ABDOMINAL PAIN AND CONSTIPATION. PAIN REPORTEDLY STARTED EARLIER IN THE MORNING. PAIN IS CURRENTLY RATED 5/10. HE ADMITS TO NAUSEA, WEAKNESS, AND FATIGUE, BUT NO VOMITING OR DIARRHEA. HE ALSO REPORTS DECREASED URINE OUTPUT, BUT DENIES RETENTION. HE REPORTS TAKING DULCOLAX AT HOME WITHOUT IMPROVEMENT IN SYMPTOMS. PMH INCLUDES TURP, HTN, GLAUCOMA, PTOSIS RIGHT EYE, CAD, HYPERLIPIDEMIA, BPH, ARTHRITIS, AND SEIZURES. ON ARRIVAL TO THE ER, VITALS WERE 98.4-70-20-95%-135/86. LABS WERE OBTAINED. ABNORMAL LAB VALUES INCLUDE THE FOLLOWING: RBC 4.58, HGB 13.0, HCT 39.1, GLUCOSE 111, ALK PHOS 119, PHENYTOIN 8.2. URINALYSIS IS UNREMARKABLE. AN ABDOMEN/PELVIS CT WITHOUT CONTRAST WAS OBTAINED AND REVEALED: 1. Acute distal descending colon diverticulitis without drainable abscess 2. Cardiomegaly, vascular plaque, spine DJD and other incidental findings. Postsurgical changes at the stomach noted. HE WAS GIVEN CIPRO 200MG IV X 1 DOSE AND FLAGYL 500MG IV X 1 IN THE ER. HE WAS ADMITTED FOR FURTHER EVALUATION AND TREATMENT OF ACUTE DIVERTICULITIS AND ABDOMINAL PAIN. HE WAS STARTED ON NORMAL SALINE AT 75 ML/HR, CIPRO 400MG IV Q12H, PEPCID 20MG IV BID, LOVENOX 40MG SC DAILY, AND HIS HOME MEDICATIONS WERE RESUMED. OTHERWISE, WE PLAN TO FOLLOW UP WITH AM LABS AND CONTINUE TO MONITOR. - Past Medical History Past Medical History: Arthritis, Coronary Artery Disease, Dyslipidemia, Hypertension, Seizures Additional Medical History: HX OF GLAUCOMA, PTOSIS RIGHT EYE, GI BLEED, BACK PAIN, BPH - Past Surgical History Surgical History: TURP - Family History Family Medical History: denies: Diabetes Mellitus, Cancer, [place], Coronary Artery Disease, Heart Failure, Sudden Cardiac , Hypertension - Social History Does patient currently use any type of tobacco product: Yes Have you used tobacco products in the last 12 months: Yes Type of Tobacco Use: Smokeless Does any household member use tobacco: No Alcohol Use: None Drug Use: None - Medications Home Medications: No Known Drug Allergies Allergy (Verified 11/05/19 21:07) CONTINUE taking the following medications tamsulosin 0.4 mg PO BID 11/05/19 [History] tolterodine 4 mg PO DAILY 11/05/19 [History] - Review of Systems Constitutional: See HPI, Weakness, Malaise. denies: Fever Eyes: No Symptoms Reported ENT: No Symptoms Reported Respiratory: No Symptoms Reported Cardiovascular: No Symptoms Reported Gastrointestinal: See HPI, Nausea, Abdominal Pain, Constipation Genitourinary: No Symptoms Reported Musculoskeletal: No Symptoms Reported Skin: No Symptoms Reported Neurological: Weakness - Physical Exam Vital Signs: Temperature 97.8 F Pulse Rate [Left] 73 Pulse Rate 70 Respiratory Rate 18 Blood Pressure [Left Arm] 137/75 Blood Pressure [Right Arm] 101/62 Blood Pressure 135/86 O2 Sat by Pulse Oximetry 99 Oriented: Normal Eyes: Normal Ear: Normal Nose: Normal Throat: Normal Respiratory: Diminished Throughout Cardiovascular: Normal. negative: S3, S4, Murmur : Normal Auscultation: Bowel Sounds: Normal Palpation: Normal Tenderness: Diffuse, Moderate. negative: Rebound, Guarding, Rigidity Skin: Normal Musculoskeletal: Normal Psychiatric: Normal Mood Description: Calm Affect: Normal Speech Pattern: Clear - Assessment/Plan (1) Acute diverticulitis Status: Acute Plan: NORMAL SALINE AT 75 ML/HR, CIPRO 400MG IV Q12H, PEPCID 20MG IV BID, LOVENOX 40MG SC DAILY, AND HIS HOME MEDICATIONS WERE RESUMED. (2) Abdominal pain Qualifiers: Abdominal location: generalized Qualified Code(s): R10.84 - Generalized abdominal pain Status: Acute - Allergies Allergies/Adverse Reactions: Allergies Allergy/AdvReac Type Severity Reaction Status Date / Time No Known Drug Allergies Allergy Verified 11/05/19 21:07
[2019-11-07] MEDS: NS 1000 ML 1,000 ML IV SCH ×4 (01:17→18:46)
[2019-11-07 06:30] LABS: BASOPHILS % (AUTO) 0.3 % (0.2-1.0); EOSINOPHILS # (AUTO) 0.2 x10^3/uL (0.0-0.2); EOSINOPHILS % (AUTO) 3.7 % (0.9-2.9); HEMOGLOBIN 11.9 g/dL (13.5-18.0); LYMPHOCYTES # (AUTO) 1.4 X10^3/uL (1.3-2.9); LYMPHOCYTES % (AUTO) 25.9 % (21.0-51.0); MEAN CORPUSCULAR HEMOGLOBIN 28.5 pg (27.0-34.0); MEAN CORPUSCULAR HGB CONC 33.1 g/dL (33.0-35.0); MEAN CORPUSCULAR VOLUME 86.1 fL (80.0-100.0); MEAN PLATELET VOLUME 8.1 fL (7.4-11.0); MONOCYTES # (AUTO) 0.4 x10^3/uL (0.3-0.8); MONOCYTES % (AUTO) 8.1 % (0.0-13.0); NEUTROPHILS # (AUTO) 3.4 x10^3/uL (2.2-4.8); PLATELET COUNT 112 X10^3/uL (150.0-450.0); RED BLOOD COUNT 4.18 X10^6/uL (4.7-6.0); RED CELL DISTRIBUTION WIDTH 17.3 % (11.6-16.5); WHITE BLOOD COUNT 5.5 X10^3/uL (3.6-10.0)
[2019-11-07 06:37] LABS: ALANINE AMINOTRANSFERASE 17 Units/L (12-78); ALBUMIN 3.1 g/dL (3.4-5.0); ALKALINE PHOSPHATASE 102 Units/L (46-116); ASPARTATE AMINO TRANSFERASE 12 Units/L (15-37); BLOOD UREA NITROGEN 10 mg/dL (7-18); CHLORIDE 107 mmol/L (98-107); COR CA(FOR HYPOALB) 8.7 mg/dL (8.5-10.1); CREATININE 1.04 mg/dL (0.70-1.30); SODIUM 142 mmol/L (136-145); eGFR NON BLACK RACES > 60 (>60)
[2019-11-07] MEDS: CIPRO IV 400 MG PREMIX* 400 MG/200 ML IV.SOLN. IV SCH ×2 (08:23→20:20)
[2019-11-07] MEDS: LOVENOX INJ 40 MG SYR SC SCH (08:24)
[2019-11-07] MEDS: DETROL LA 4 MG CAP EXT REL PO SCH (08:25)
[2019-11-07] MEDS: DILANTIN CAP 100 MG EXT REL PO SCH ×2 (08:25→20:20)
[2019-11-07] MEDS: FLOMAX PO SCH ×2 (08:26→20:20)
[2019-11-07] MEDS: TOPROL XL PO SCH (08:26)
[2019-11-07] MEDS: COMBIGAN EYE DROPS EACHEYE SCH ×3 (08:27→20:20)
[2019-11-07] MEDS: TRAVATAN Z EACHEYE SCH (20:21)
[2019-11-08] MEDS: NS 1000 ML 1,000 ML IV SCH (03:33)
[2019-11-08 06:37] LABS: BASOPHILS % (AUTO) 0.5 % (0.2-1.0); EOSINOPHILS # (AUTO) 0.3 x10^3/uL (0.0-0.2); EOSINOPHILS % (AUTO) 5.5 % (0.9-2.9); LYMPHOCYTES # (AUTO) 1.1 X10^3/uL (1.3-2.9); LYMPHOCYTES % (AUTO) 22.8 % (21.0-51.0); MEAN CORPUSCULAR HEMOGLOBIN 28.5 pg (27.0-34.0); MEAN CORPUSCULAR HGB CONC 33.3 g/dL (33.0-35.0); MEAN CORPUSCULAR VOLUME 85.8 fL (80.0-100.0); MONOCYTES # (AUTO) 0.4 x10^3/uL (0.3-0.8); NEUTROPHILS # (AUTO) 3.1 x10^3/uL (2.2-4.8); NEUTROPHILS % (AUTO) 63.2 % (42.0-75.0); PLATELET COUNT 120 X10^3/uL (150.0-450.0); RED BLOOD COUNT 4.19 X10^6/uL (4.7-6.0); WHITE BLOOD COUNT 4.9 X10^3/uL (3.6-10.0)
[2019-11-08 07:02] LABS: ALANINE AMINOTRANSFERASE 19 Units/L (12-78); ALBUMIN 3.2 g/dL (3.4-5.0); ALKALINE PHOSPHATASE 98 Units/L (46-116); ASPARTATE AMINO TRANSFERASE 20 Units/L (15-37); BLOOD UREA NITROGEN 9 mg/dL (7-18); CALCIUM 8.3 mg/dL (8.5-10.1); CARBON DIOXIDE 28.6 mmol/L (21-32); CHLORIDE 106 mmol/L (98-107); COR CA(FOR HYPOALB) 8.9 mg/dL (8.5-10.1); CREATININE 0.99 mg/dL (0.70-1.30); SODIUM 140 mmol/L (136-145); TOTAL PROTEIN 6.3 g/dL (6.4-8.2); eGFR NON BLACK RACES > 60 (>60)
[2019-11-08] MEDS: DILANTIN CAP 100 MG EXT REL PO SCH (09:37)
[2019-11-08] MEDS: CIPRO IV 400 MG PREMIX* 400 MG/200 ML IV.SOLN. IV SCH (09:37)
[2019-11-08] MEDS: COMBIGAN EYE DROPS EACHEYE SCH (09:37)
[2019-11-08] MEDS: LOVENOX INJ 40 MG SYR SC SCH (09:38)
[2019-11-08] MEDS: TOPROL XL PO SCH (09:38)
[2019-11-08] MEDS: FLOMAX PO SCH (09:38)
[2019-11-08] MEDS: DETROL LA 4 MG CAP EXT REL PO SCH (10:07)
[2019-11-08 13:25] VITALS: BP 133/73
== END 2019-11-08 11:50 | disposition home or self-care (01) | DRG 392 ==
LOC: ER 20:54 → MED/SURG 23:31 → OBS 11-06 15:57
PROVIDERS: ADMIT Family Medicine; ATTEND Internal Medicine
DX: I10 Essential (primary) hypertension; K57.32 Diverticulitis of large intestine without perforation or abscess without bleeding; R26.89 Other abnormalities of gait and mobility; R10.84 Generalized abdominal pain
CPT/HCPCS: 36415; 74176; 80053; 80185; 81003; 82150; 83690; 85025; 96365; 96374; 97162; 97166; 97530; 97535; 99284; A4222; J0744; J1650; J7030; S0030